=== PATIENT | male | born 1945 | race Caucasian/White ===

== ENCOUNTER 2019-01-22 12:23 | Outpatient (CLI) | payer MEDICARE, OTHER | END 2019-01-22 23:59 | disposition home or self-care (01) | LOC: RAD 12:23 | PROVIDERS: ATTEND Ophthalmology | DX: R00.1 Bradycardia, unspecified (principal) | CPT/HCPCS: 93005 ==

== ENCOUNTER 2020-09-01 05:31 | Day surgery (SDC) | payer MEDICARE, OTHER ==
[~2020-09-01] VITALS: Ht 193 cm; Wt 118.6 kg
[2020-09-01] VITALS (10 sets, daily range): BP systolic 122–160; BP diastolic 66–96
[~2020-09-01 05:31] MED LIST: AMLO5TAB16 PO; CHOL5000 PO; FLO0.4C PO; LISI10TA27 PO; NAPR-996 PO; PRED1TAB PO; cefazolin/dext.iso 2gm/100ml IV ONE; famotidine 20mg tablet PO ONE; ringers solution, lacted 1,000 ML IV SCH
[2020-09-01] MEDS ORDERED: LIDOcaine 1% 30ml preserv. free vial ONE (06:41)
[2020-09-01] MEDS ORDERED: BUPIVAcaine/PF 2.5 mg/ml (0.25%) 30ml vial ONE (06:41)
[2020-09-01] MEDS ORDERED: fentaNYL/PF 50MCG/1 ML 2ML syringe ONE (07:14)
[2020-09-01] MEDS ORDERED: LIDOcaine 2% (20mg/ml) 5ml vial ONE (07:16)
[2020-09-01] MEDS ORDERED: rocuronium 10mg/ml inj IV ONE (07:16)
[2020-09-01] MEDS ORDERED: propofol inj 20 ML IV ONE (07:16)
[2020-09-01 07:21] LABS: BASOPHILS % (AUTO) 0.5 % (0-1); EOSINOPHILS # (AUTO) 0.8 X10'3 (0-0.9); EOSINOPHILS % (AUTO) 12.1 % (0-6); LYMPHOCYTES # (AUTO) 1.2 X10'3 (1.1-4.8); MEAN CORPUSCULAR HEMOGLOBIN 30.6 PG (27.0-31.0); MEAN CORPUSCULAR HGB CONC 32.8 g/dL (33.0-36.5); MEAN CORPUSCULAR VOLUME 93.4 FL (78-98); MEAN PLATELET VOLUME 11.4 FL (7.4-10.4); MONOCYTES # (AUTO) 0.5 X10'3 (0-0.9); MONOCYTES % (AUTO) 7.3 % (2-12); NEUTROPHILS # (AUTO) 4.1 X10'3 (1.8-7.7); NEUTROPHILS % (AUTO) 62.1 % (42-75); PRE OP HEMATOCRIT 41.3 % (42.0-52.0); PRE OP HEMOGLOBIN 13.6 g/dL (14.0-17.9); PRE OP PLATELET COUNT 206 X10'3 (140-440); RED BLOOD COUNT 4.43 X10'6 (4.70-6.10)
[2020-09-01] MEDS ORDERED: ondansetron/PF 4mg/2ml inj IV PRN (07:30)
[2020-09-01] MEDS ORDERED: morphine 2 MG/ML inj. syringe IV PRN (07:30)
[2020-09-01] MEDS ORDERED: HYDROmorphone/PF 0.2 MG/ML SYRINGE IV PRN (07:30)
[2020-09-01] MEDS ORDERED: ringers solution, lacted 1,000 ML IV SCH (07:30)
[2020-09-01 07:39] LABS: ALBUMIN 3.1 G/DL (3.4-5.0); ALBUMIN/GLOBULIN RATIO 0.9 (1.1-1.5); ALKALINE PHOSPHATASE 76 IU/L (46-116); BLOOD UREA NITROGEN 39 MG/DL (7-18); BUN/CREATININE RATIO 22.4 (5.4-32.0); CALCIUM 8.3 MG/DL (8.5-10.1); CHLORIDE 111 MMOL/L (99-107); CREATININE 1.74 MG/DL (0.60-1.10); PRE OP ALT 25 U/L (30-65); PRE OP ANION GAP 11 (8-16); PRE OP AST 15 U/L (10-37); PRE OP BILIRUB, TOTAL 0.4 MG/DL (0.0-1.0); PRE OP GLUCOSE 106 MG/DL (70-104); PRE OP POTASSIUM 4.3 MMOL/L (3.4-5.1); PRE OP SODIUM 145 MMOL/L (135-145); TOTAL CARBON DIOXIDE 23.4 MMOL/L (24-32); TOTAL PROTEIN 6.5 G/DL (6.4-8.2); eGFR 38 ML/MIN
[2020-09-01] MEDS ORDERED: sevoflurane 250ml liquid IH ONE (08:07)
[2020-09-01] MEDS ORDERED: BUPIVAcaine/PF 2.5mg/ml (0.25%) 10ml vial ONE (08:22)
[2020-09-01] MEDS ORDERED: BUPIVACAINE liposomal/PF 13.3 MG/ML vial IM ONE (08:22)
--- NOTE | 2020-09-01 09:00 | NUR ---
Received from OR via , accompanied by Anesthesiologist DR MCKEON and report given by Anesthesiolgist. AWAKENS TO VOICE. VITALS STABLE. DRESSINGS DI. GREGG PAIN. ABD SOFT.
[2020-09-01] MEDS ORDERED: oxyCODONE/APAP 5-325mg tablet PO PRN ×2 (09:10)
[2020-09-01] MEDS ORDERED: glycopyrrolate 0.2mg/ml inj ONE (09:28)
[2020-09-01] MEDS ORDERED: acetaminophen 1,000mg/100ml IV 100 ML IV ONE (09:28)
[2020-09-01] MEDS ORDERED: ondansetron/PF 4mg/2ml inj ONE (09:28)
[2020-09-01] MEDS ORDERED: neostigmine methylsulfate 1 MG/ML 10ml vial ONE (09:28)
[2020-09-01] MEDS: HYDROmorphone/PF 0.2 MG/ML SYRINGE IV PRN ×2 (09:51→10:16)
--- NOTE | 2020-09-01 11:20 | NUR ---
AWAKE AND ORIENTED. VITALS STABLE. DRESSINGS DI. STATES PAIN IMPROVING. HOME WITH HIS AT THIS TIME.
== END 2020-09-01 11:20 | disposition home or self-care (01) ==
LOC: PAS 05:31
PROVIDERS: ATTEND Surgery
DX: K42.9 Umbilical hernia without obstruction or gangrene (principal); I10 Essential (primary) hypertension; M19.90 Unspecified osteoarthritis, unspecified site; G47.33 Obstructive sleep apnea (adult) (pediatric); N40.0 Benign prostatic hyperplasia without lower urinary tract symptoms; E78.5 Hyperlipidemia, unspecified; E55.9 Vitamin D deficiency, unspecified; Z98.890 Other specified postprocedural states; Z88.5 Allergy status to narcotic agent; Z79.899 Other long term (current) drug therapy; Z88.8 Allergy status to other drugs, medicaments and biological substances; Z82.49 Family history of ischemic heart disease and other diseases of the circulatory system; Z82.3 Family history of stroke; Z82.61 Family history of arthritis
CPT/HCPCS: 49652; 64488; 80053; 82948; 85025; 93005; C1781; C9290; J0131; J1170; J2001; J2405; J2704; J2710; J3010; J3490; A4215; A4618; J7120

== ENCOUNTER 2021-02-06 18:34 | Emergency (ER) | payer MEDICARE, OTHER ==
[~2021-02-06] VITALS: Ht 193 cm; Wt 118.2 kg
[~2021-02-06 18:34] MED LIST changes: -cefazolin/dext.iso 2gm/100ml IV ONE; -famotidine 20mg tablet PO ONE; -ringers solution, lacted 1,000 ML IV SCH
[2021-02-06] MEDS ORDERED: LIDOcaine 1% W/epiNEPHrine 1:200,000 10ml vial IJ ONE (19:50)
[2021-02-06] MEDS ORDERED: bacitracin 15gm ointment TP ONE (19:50)
[2021-02-06] MEDS ORDERED: LIDOcaine 1% w/epiNEPHrine 1:200,000 30ml vial IJ ONE (19:55)
[2021-02-06] MEDS ORDERED: morphine 4 MG/ML inj SYRINge IV ONE (19:55)
[2021-02-06] MEDS ORDERED: ACET-1025 PO (21:12)
[2021-02-06] MEDS ORDERED: ketorolac trometh. 30mg/ml inj. IV ONE (21:50)
[2021-02-06] MEDS ORDERED: orphenadrine citrate 60mg/2ml inj. IM ONE (21:50)
[2021-02-06 22:19] VITALS: BP 174/87
== END 2021-02-06 22:23 | disposition home or self-care (01) ==
LOC: ER 18:35
DX: S62.316A Displaced fracture of base of fifth metacarpal bone, right hand, initial encounter for closed fracture (principal); S01.81XA Laceration without foreign body of other part of head, initial encounter; S01.21XA Laceration without foreign body of nose, initial encounter; S01.111A Laceration without foreign body of right eyelid and periocular area, initial encounter; M54.2 Cervicalgia; W18.09XA Striking against other object with subsequent fall, initial encounter; Z91.81 History of falling; Y93.89 Activity, other specified; Y92.89 Other specified places as the place of occurrence of the external cause; Y99.8 Other external cause status; Z88.8 Allergy status to other drugs, medicaments and biological substances; Z79.899 Other long term (current) drug therapy; S09.90XA Unspecified injury of head, initial encounter
CPT/HCPCS: 12013; 29125; 70450; 72125; 73110; 73130; 96372; 96374; 96375; 99285; J1885; J2270; J2360; 99284

== ENCOUNTER 2021-02-13 09:01 | Emergency (ER) | payer MEDICARE, OTHER ==
[~2021-02-13] VITALS: Ht 193 cm; Wt 118.2 kg
[~2021-02-13 09:01] MED LIST changes: +ACET-1025 PO
[2021-02-13 09:08] VITALS: BP 179/98
== END 2021-02-13 13:15 | disposition home or self-care (01) ==
LOC: ER 09:03
DX: S01.111D Laceration without foreign body of right eyelid and periocular area, subsequent encounter (principal); S01.21XD Laceration without foreign body of nose, subsequent encounter; Z48.02 Encounter for removal of sutures; Z79.899 Other long term (current) drug therapy; Z88.8 Allergy status to other drugs, medicaments and biological substances; X58.XXXD Exposure to other specified factors, subsequent encounter
CPT/HCPCS: 99281

== ENCOUNTER 2022-04-27 11:20 | Inpatient (IN) | payer MEDICARE, OTHER ==
[~2022-04-27] VITALS: Ht 193 cm; Wt 118.0 kg
[~2022-04-27 11:20] MED LIST changes: -ACET-1025 PO
[2022-04-27 11:45] LABS: HEMOGLOBIN 10.3 g/dl (14.0-17.9); LYMPHOCYTES # (AUTO) 0.6 X10'3 (1.1-4.8); MEAN CORPUSCULAR HGB CONC 30.6 g/dL (33.0-36.5); MEAN CORPUSCULAR VOLUME 84.4 FL (78-98); MONOCYTES # (AUTO) 0.5 X10'3 (0-0.9); NEUTROPHILS # (AUTO) 6.3 X10'3 (1.8-7.7); RED BLOOD COUNT 3.99 X10'6 (4.70-6.10)
[2022-04-27 11:46] LABS: BASOPHILS % (AUTO) 0.5 % (0-1); EOSINOPHILS # (AUTO) 0.1 X10'3 (0-0.9); EOSINOPHILS % (AUTO) 1.5 % (0-6); HEMATOCRIT 33.7 % (42.0-52.0); LYMPHOCYTES % (AUTO) 7.7 % (21-51); MEAN CORPUSCULAR HEMOGLOBIN 25.9 PG (27.0-31.0); MEAN PLATELET VOLUME 10.8 FL (7.4-10.4); MONOCYTES % (AUTO) 6.9 % (2-12); NEUTROPHILS % (AUTO) 83.4 % (42-75); PLATELET COUNT 402 X10'3 (140-440); RED CELL DISTRIBUTION WIDTH 21.1 % (11.5-14.5); WHITE BLOOD COUNT 7.5 X10'3 (4.5-11.0)
[2022-04-27 11:57] LABS: ALANINE AMINOTRANSFERASE 14 U/L (12-78); ALBUMIN 2.2 G/DL (3.4-5.0); ALBUMIN/GLOBULIN RATIO 0.5 (1.1-1.5); ALKALINE PHOSPHATASE 82 IU/L (46-116); ASPARTATE AMINO TRANSFERASE 11 U/L (10-37); BILIRUBIN,TOTAL 0.4 MG/DL (0.1-1.0); BLOOD UREA NITROGEN 71 MG/DL (7-18); BUN/CREATININE RATIO 17.5 (5.4-32.0); CALCIUM 8.9 MG/DL (8.5-10.1); CREATININE 4.05 MG/DL (0.60-1.10); GLUCOSE 122 MG/DL (70-104); SODIUM 143 MMOL/L (135-145); TOTAL CARBON DIOXIDE 20.5 MMOL/L (24-32); TOTAL PROTEIN 6.8 G/DL (6.4-8.2); eGFR 14 ML/MIN
[2022-04-27 12:04] LABS: MAGNESIUM 2.5 MG/DL (1.5-2.4)
[2022-04-27 12:08] LABS: ANISOCYTOSIS 3+; MICROCYTOSIS 1+; PLATELET ESTIMATE NORMAL
[2022-04-27 12:09] LABS: ACANTHOCYTES FEW; ELLIPTOCYTES 1+
[2022-04-27 12:10] LABS: ANION GAP 12 (8-16); CHLORIDE 111 MMOL/L (99-107); POTASSIUM 5.7 MMOL/L (3.5-5.1)
--- NOTE | 2022-04-27 13:39 | NUR ---
AT BEDSIDE - PT GIVEN WARM BLANKETS. ON MONITORING EQUIPMENT. REPORTS DIZZINESS. NO OTHER SYMPTOMS
--- NOTE | 2022-04-27 14:01 | NUR ---
Break RN: Patient on bed awake, spouse at bedside.Call light within reach.
[2022-04-27] MEDS ORDERED: diazepam 5mg tablet PO ONE (14:25)
[2022-04-27] MEDS ORDERED: meclizine 12.5mg tablet PO ONE (14:25)
[2022-04-27] MEDS ORDERED: normal saline 1000ML IV soln IVB ONE (16:00)
--- NOTE | 2022-04-27 16:42 | NUR ---
FAMILY CALLED AND WAS PROVIDED WITH UPDATE ON PLAN OF CARE
[2022-04-27] MEDS ORDERED: docusate sod 100mg capsule PO PRN (17:25)
[2022-04-27] MEDS ORDERED: PERFLUTREN PROTEIN-A MICROSPHR (Optison) 0.22 MG/ML 3ML VIAL IV ONE (17:25)
[2022-04-27] MEDS ORDERED: potassium Cl 20 mEq SR tablet PO PRN ×2 (17:25)
[2022-04-27] MEDS ORDERED: ondansetron/PF 4mg/2ml inj IV PRN (17:25)
[2022-04-27] MEDS ORDERED: diazepam inj 5 MG/ML inj. IV PRN (17:25)
[2022-04-27] MEDS ORDERED: acetaminophen 325mg tablet PO PRN ×2 (17:25)
[2022-04-27] MEDS ORDERED: potassium Cl 40MEQ/1/2NS 520ml 520 ML IV PRN (17:25)
[2022-04-27] MEDS ORDERED: mag hydrox/Alum hydrox/simeth 30ml oral suspension PO PRN (17:25)
[2022-04-27] MEDS ORDERED: meclizine 12.5mg tablet PO PRN (17:25)
[2022-04-27] MEDS ORDERED: magnesium 4gm in 100ml NS 100 ML IV PRN (17:25)
--- NOTE | 2022-04-27 17:30 | NUR ---
HOSPITALIST AT BEDSIDE FOR ADMISSION
[2022-04-27] MEDS ORDERED: CHOL20002 PO (17:31)
[2022-04-27] MEDS ORDERED: FERR-106 PO (17:31)
[2022-04-27] MEDS ORDERED: ASCO500C18 PO (17:31)
[2022-04-27] MEDS ORDERED: MULT-1219 PO (17:31)
--- NOTE | 2022-04-27 18:05 | NUR ---
ECHO AT BEDSIDE
[2022-04-27] MEDS: K and/or MAG REPLACEMENT MC SCH (20:00)
[2022-04-27] MEDS: enoxaparin 30mg/0.3ml syringe SQ SCH (20:00)
[2022-04-27 23:30] VITALS: BP 166/85
[2022-04-28 02:00] VITALS: BP 144/64
[2022-04-28 06:06] LABS: BASOPHILS % (AUTO) 0.6 % (0-1); EOSINOPHILS # (AUTO) 0.2 X10'3 (0-0.9); HEMOGLOBIN 9.3 g/dl (14.0-17.9); LYMPHOCYTES # (AUTO) 0.7 X10'3 (1.1-4.8); MONOCYTES # (AUTO) 0.6 X10'3 (0-0.9); WHITE BLOOD COUNT 6.2 X10'3 (4.5-11.0)
[2022-04-28 06:08] LABS: EOSINOPHILS % (AUTO) 3.6 % (0-6); LYMPHOCYTES % (AUTO) 10.8 % (21-51); MEAN CORPUSCULAR HEMOGLOBIN 26.2 PG (27.0-31.0); MEAN CORPUSCULAR VOLUME 84.5 FL (78-98); MEAN PLATELET VOLUME 9.6 FL (7.4-10.4); MONOCYTES % (AUTO) 10.5 % (2-12); NEUTROPHILS # (AUTO) 4.6 X10'3 (1.8-7.7); NEUTROPHILS % (AUTO) 74.5 % (42-75); PLATELET COUNT 308 X10'3 (140-440); RED BLOOD COUNT 3.55 X10'6 (4.70-6.10); RED CELL DISTRIBUTION WIDTH 20.8 % (11.5-14.5)
[2022-04-28 06:25] LABS: % IRON SATURATION 16 % (11-46); IRON 18 UG/DL (53-167); TOTAL IRON BINDING CAPACITY 111 UG/DL (259-388)
[2022-04-28 06:26] LABS: ALANINE AMINOTRANSFERASE 14 U/L (12-78); ALBUMIN 1.9 G/DL (3.4-5.0); ALBUMIN/GLOBULIN RATIO 0.5 (1.1-1.5); ALKALINE PHOSPHATASE 67 IU/L (46-116); ANION GAP 10 (8-16); ASPARTATE AMINO TRANSFERASE 15 U/L (10-37); BILIRUBIN,TOTAL 0.4 MG/DL (0.1-1.0); BLOOD UREA NITROGEN 69 MG/DL (7-18); BUN/CREATININE RATIO 17.8 (5.4-32.0); CALCIUM 8.2 MG/DL (8.5-10.1); CHLORIDE 114 MMOL/L (99-107); CREATININE 3.88 MG/DL (0.60-1.10); GLUCOSE 95 MG/DL (70-104); MAGNESIUM 2.4 MG/DL (1.5-2.4); POTASSIUM 5.9 MMOL/L (3.5-5.1); SODIUM 144 MMOL/L (135-145); TOTAL CARBON DIOXIDE 19.9 MMOL/L (24-32); TOTAL PROTEIN 5.7 G/DL (6.4-8.2); eGFR 15 ML/MIN
[2022-04-28 06:34] LABS: PLATELET ESTIMATE NORMAL
[2022-04-28 06:35] LABS: ANISOCYTOSIS 3+; ELLIPTOCYTES 1+; GIANT PLATELET FEW; LARGE PLATELETS MODERATE
--- NOTE | 2022-04-28 06:45 | NUR ---
Report given to Kerrie MIKE
--- NOTE | 2022-04-28 06:55 | NUR ---
Patient in room PCU 3028. I have received report from Bettina and had the opportunity to ask questions and assume patient care.
[2022-04-28 07:15] VITALS: BP 141/61
[2022-04-28] MEDS: K and/or MAG REPLACEMENT MC SCH ×2 (08:00→20:00)
[2022-04-28] MEDS ORDERED: calcium chloride 100 MG/1 ML inj IV ONE (08:05)
[2022-04-28] MEDS ORDERED: WATER IV SCH (08:05)
[2022-04-28] MEDS ORDERED: albuterol 2.5 MG/3 ML nebule CONTNEB ONE (08:05)
[2022-04-28] MEDS ORDERED: insulin regular, human 10 units/0.1 ml syringe SQ ONE (08:05)
[2022-04-28] MEDS ORDERED: DEXTROSE 5% IV SCH (08:05)
[2022-04-28] MEDS ORDERED: SODIUM BICARBONATE IV SCH (08:05)
[2022-04-28] MEDS ORDERED: sodium bicarbonate (8.4%) 1 mEq/ml syringe IV ONE (08:05)
[2022-04-28] MEDS ORDERED: dextrose 50%-water 50ml dispensing syringe IV ONE (08:05)
[2022-04-28 08:38] LABS: PHOSPHORUS 5.6 MG/DL (2.3-4.5)
[2022-04-28] MEDS ORDERED: CALCIUM GLUC IV ONE (09:45)
[2022-04-28] MEDS ORDERED: ISO OSM IV ONE (09:45)
[2022-04-28] MEDS ORDERED: NACL IV ONE (09:45)
[2022-04-28] MEDS ORDERED: calcium chloride inj. 1,000 MG in NS 100ml IV soln (110ml) IV ONE (09:55)
[2022-04-28 11:00] VITALS: BP 135/58
[2022-04-28] MEDS: sodium bicarbonate (8.4%) inj. 50 MEQ in dextrose 5%-water 1,000 ML IV SCH (11:28)
--- NOTE | 2022-04-28 12:01 | NUR ---
Malnutrition consult: Pt reports 24-33 lb wt loss with decreased appetite per malnutrition risk screen with RN. Pending documentation of PO intake at this time. Current documented wt is 100% stable with documented wt hx back to 09/01/2020 (118.6 kg) and 129% IBW. Pt with no documented decrease in muscle strength or edema. Pt currently lacks a minimum of two criteria for malnutrition. Will continue to follow and further monitor malnutrition criteria. Addendum: 04/28/22 at [address] Amended: Links added.
[2022-04-28 12:54] LABS: ALBUMIN 1.8 G/DL (3.4-5.0); ANION GAP 8 (8-16); BLOOD UREA NITROGEN 68 MG/DL (7-18); BUN/CREATININE RATIO 17.7 (5.4-32.0); CALCIUM 8.9 MG/DL (8.5-10.1); CHLORIDE 114 MMOL/L (99-107); CREATININE 3.84 MG/DL (0.60-1.10); GLUCOSE 124 MG/DL (70-104); POTASSIUM 5.7 MMOL/L (3.5-5.1); SODIUM 142 MMOL/L (135-145); eGFR 15 ML/MIN
[2022-04-28] MEDS ORDERED: SODIUM ZIRCONIUM CYCLOSILICATE 10 GM POWD.PACK PO ONE (13:20)
[2022-04-28] MEDS ORDERED: sodium polystyrene sulfonate 15gm/60ml oral suspension PO ONE (16:25)
[2022-04-28] MEDS: iron sucrose complex injection 200 MG in normal saline 100ml IV soln 100 ML IV SCH (17:07)
--- NOTE | 2022-04-28 18:24 | NUR ---
Problems reprioritized. Patient report given, questions answered & plan of care reviewed with
[2022-04-28] MEDS: enoxaparin 30mg/0.3ml syringe SQ SCH (21:04)
[2022-04-28 22:00] VITALS: BP 140/64
[2022-04-29] MEDS: furosemide 40mg/4ml inj IV SCH ×4 (00:40→23:32)
[2022-04-29] MEDS: sodium bicarbonate (8.4%) inj. 50 MEQ in dextrose 5%-water 1,000 ML IV SCH ×3 (01:03→16:06)
[2022-04-29 02:00] VITALS: BP 145/70
[2022-04-29 06:30] LABS: BASOPHILS % (AUTO) 0.6 % (0-1); EOSINOPHILS # (AUTO) 0.1 X10'3 (0-0.9); EOSINOPHILS % (AUTO) 2.6 % (0-6); HEMATOCRIT 27.4 % (42.0-52.0); HEMOGLOBIN 8.4 g/dl (14.0-17.9); LYMPHOCYTES # (AUTO) 0.6 X10'3 (1.1-4.8); LYMPHOCYTES % (AUTO) 11.6 % (21-51); MEAN CORPUSCULAR HEMOGLOBIN 25.5 PG (27.0-31.0); MEAN CORPUSCULAR HGB CONC 30.5 g/dL (33.0-36.5); MEAN CORPUSCULAR VOLUME 83.7 FL (78-98); MEAN PLATELET VOLUME 10.5 FL (7.4-10.4); MONOCYTES # (AUTO) 0.6 X10'3 (0-0.9); MONOCYTES % (AUTO) 10.8 % (2-12); NEUTROPHILS # (AUTO) 4.1 X10'3 (1.8-7.7); NEUTROPHILS % (AUTO) 74.4 % (42-75); PLATELET COUNT 277 X10'3 (140-440); RED BLOOD COUNT 3.28 X10'6 (4.70-6.10); RED CELL DISTRIBUTION WIDTH 21.1 % (11.5-14.5); WHITE BLOOD COUNT 5.6 X10'3 (4.5-11.0)
--- NOTE | 2022-04-29 06:35 | NUR ---
Patient in room PCU 3028. I have received report from GABRIELA MIKE and had the opportunity to ask questions and assume patient care.
[2022-04-29 06:52] LABS: ALANINE AMINOTRANSFERASE 14 U/L (12-78); ALBUMIN 1.7 G/DL (3.4-5.0); ALBUMIN/GLOBULIN RATIO 0.5 (1.1-1.5); ALKALINE PHOSPHATASE 61 IU/L (46-116); ANION GAP 8 (8-16); ASPARTATE AMINO TRANSFERASE 15 U/L (10-37); BILIRUBIN,TOTAL 0.3 MG/DL (0.1-1.0); BLOOD UREA NITROGEN 65 MG/DL (7-18); BUN/CREATININE RATIO 17.5 (5.4-32.0); CALCIUM 8.2 MG/DL (8.5-10.1); CHLORIDE 110 MMOL/L (99-107); CREATININE 3.71 MG/DL (0.60-1.10); GLUCOSE 105 MG/DL (70-104); MAGNESIUM 2.3 MG/DL (1.5-2.4); PHOSPHORUS 5.5 MG/DL (2.3-4.5); POTASSIUM 4.7 MMOL/L (3.5-5.1); SODIUM 140 MMOL/L (135-145); TOTAL CARBON DIOXIDE 21.8 MMOL/L (24-32); TOTAL PROTEIN 5.3 G/DL (6.4-8.2); eGFR 16 ML/MIN
[2022-04-29 07:21] VITALS: BP 135/63
--- NOTE | 2022-04-29 07:47 | NUR ---
reported critical lab value to primary RN
[2022-04-29] MEDS: K and/or MAG REPLACEMENT MC SCH ×2 (08:00→20:00)
[2022-04-29] MEDS: iron sucrose complex injection 200 MG in normal saline 100ml IV soln 100 ML IV SCH (09:12)
[2022-04-29] MEDS ORDERED: aspirin 81mg, enteric-coated 1 TAB TABLET.DR PO ONE (09:30)
[2022-04-29 10:12] LABS: CLARITY,URINE SLIGHTLY CLOUDY (Clear); COLOR,URINE YELLOW (Yellow); GLUCOSE, URINE NEGATIVE (Neg); KETONES,URINE NEGATIVE (Neg); LEUKOCYTE ESTERASE ,URINE NEGATIVE (Neg); NITRITES, URINE NEGATIVE (Neg); OCCULT BLOOD,URINE LARGE (Neg); PROTEIN,URINE 30 mg/dl (Neg); UROBILINOGEN,URINE 0.2 E.U/dL (0.2-1.0)
[2022-04-29 10:16] LABS: UA COLLECTION TYPE URINAL
[2022-04-29 10:18] LABS: BACTERIA,URINE FEW /HPF (Neg); WBC,URINE 0-4 /HPF (0-4)
[2022-04-29 10:19] LABS: FINE GRANULAR CAST 0-3 /LPF (NEGATIVE); MUCUS STRANDS NONE SEEN /LPF (Neg); SQUAMOUS EPITHELIAL CELL,UR FEW /LPF (FEW)
[2022-04-29 10:20] LABS: COARSE GRANULAR CAST 0-3 /LPF (NEGATIVE); RED BLOOD CELL CASTS,URINE 0-3 /LPF (NEGATIVE)
[2022-04-29 10:26] LABS: TOTAL PROTEIN,URINE RANDOM 68.5 MG/DL
[2022-04-29 11:28] VITALS: BP 150/70
[2022-04-29 15:45] VITALS: BP 160/67
[2022-04-29 18:00] VITALS: BP 156/69
--- NOTE | 2022-04-29 18:18 | NUR ---
Problems reprioritized. Patient report given, questions answered & plan of care reviewed with GOSIA BURLESON.
[2022-04-29] MEDS: enoxaparin 30mg/0.3ml syringe SQ SCH (19:33)
[2022-04-30 01:53] VITALS: BP 158/67
[2022-04-30] MEDS: sodium bicarbonate (8.4%) inj. 50 MEQ in dextrose 5%-water 1,000 ML IV SCH (02:29)
[2022-04-30 06:00] VITALS: BP 159/72
[2022-04-30 06:09] LABS: ALANINE AMINOTRANSFERASE 14 U/L (12-78); ALBUMIN 1.8 G/DL (3.4-5.0); ALBUMIN/GLOBULIN RATIO 0.5 (1.1-1.5); ALKALINE PHOSPHATASE 64 IU/L (46-116); ANION GAP 8 (8-16); ASPARTATE AMINO TRANSFERASE 21 U/L (10-37); BILIRUBIN,TOTAL 0.4 MG/DL (0.1-1.0); BLOOD UREA NITROGEN 61 MG/DL (7-18); BUN/CREATININE RATIO 16.4 (5.4-32.0); CALCIUM 8.2 MG/DL (8.5-10.1); CHLORIDE 106 MMOL/L (99-107); CREATININE 3.73 MG/DL (0.60-1.10); GLUCOSE 99 MG/DL (70-104); MAGNESIUM 2.1 MG/DL (1.5-2.4); PHOSPHORUS 5.5 MG/DL (2.3-4.5); POTASSIUM 4.5 MMOL/L (3.5-5.1); SODIUM 138 MMOL/L (135-145); TOTAL CARBON DIOXIDE 24.5 MMOL/L (24-32); TOTAL PROTEIN 5.6 G/DL (6.4-8.2); eGFR 16 ML/MIN
[2022-04-30 06:14] LABS: BASOPHILS % (AUTO) 0.5 % (0-1); EOSINOPHILS # (AUTO) 0.3 X10'3 (0-0.9); EOSINOPHILS % (AUTO) 5.3 % (0-6); HEMOGLOBIN 8.6 g/dl (14.0-17.9); LYMPHOCYTES # (AUTO) 0.7 X10'3 (1.1-4.8); LYMPHOCYTES % (AUTO) 12.1 % (21-51); MEAN CORPUSCULAR HEMOGLOBIN 25.7 PG (27.0-31.0); MEAN CORPUSCULAR HGB CONC 30.9 g/dL (33.0-36.5); MEAN CORPUSCULAR VOLUME 83.3 FL (78-98); MEAN PLATELET VOLUME 10.6 FL (7.4-10.4); MONOCYTES # (AUTO) 0.6 X10'3 (0-0.9); MONOCYTES % (AUTO) 10.1 % (2-12); NEUTROPHILS # (AUTO) 4.2 X10'3 (1.8-7.7); PLATELET COUNT 281 X10'3 (140-440); RED BLOOD COUNT 3.36 X10'6 (4.70-6.10); RED CELL DISTRIBUTION WIDTH 20.4 % (11.5-14.5); WHITE BLOOD COUNT 5.9 X10'3 (4.5-11.0)
--- NOTE | 2022-04-30 06:25 | NUR ---
Patient in room PCU 3028. I have received report from Mario BURLESON and had the opportunity to ask questions and assume patient care.
[2022-04-30 07:14] LABS: ANISOCYTOSIS 3+; LARGE PLATELETS MODERATE; PLATELET ESTIMATE NORMAL
[2022-04-30] MEDS: furosemide 40mg/4ml inj IV SCH (07:58)
[2022-04-30] MEDS: K and/or MAG REPLACEMENT MC SCH ×2 (08:00→20:00)
[2022-04-30] MEDS: iron sucrose complex injection 200 MG in normal saline 100ml IV soln 100 ML IV SCH (08:06)
[2022-04-30] MEDS: aspirin 81mg, enteric-coated 1 TAB TABLET.DR PO SCH (09:05)
[2022-04-30] MEDS: lisinopril 20mg tablet PO SCH (09:06)
[2022-04-30] MEDS: cholecalciferol (vitamin D3) 1,000 unit (25mcg) tablet PO SCH (09:06)
[2022-04-30] MEDS: multivitamins, therapeutics tablet PO SCH (09:06)
[2022-04-30] MEDS: ascorbic acid 500mg tablet PO SCH (09:07)
--- NOTE | 2022-04-30 10:27 | NUR ---
Paged MD about patient heart rhythm being in the 30's, then patient heart rhythm back to normal range.
--- NOTE | 2022-04-30 11:42 | NUR ---
verbally spoke with patient Sara over the phone and gave her an update on patient care. Then transferred her to patient
[2022-04-30 13:00] VITALS: BP 173/84
--- NOTE | 2022-04-30 14:33 | NUR ---
RN TC: Animal Care Taker requests RD renal diet ed for pt/SO. Pt eGFR 16 w/ persistently elevated Phos this admit DX MYKEL w/ CKD 4 now advanced to renal diet per EMR. Pt/SO seen by RD for written/verbal renal diet ed w/ RD contact information provided. RD encouraged pt/SO to contact dietitian's office if further nutrition questions/concerns. Addendum: 04/30/22 at [address] Amended: Links added.
--- NOTE | 2022-04-30 17:16 | NUR ---
I agree with Marlena BURLESON assessment.
[2022-04-30 18:00] VITALS: BP 148/72
--- NOTE | 2022-04-30 18:16 | NUR ---
Problems reprioritized. Patient report given, questions answered & plan of care reviewed with Mario BURLESON.
[2022-04-30] MEDS: enoxaparin 30mg/0.3ml syringe SQ SCH (19:32)
[2022-05-01 01:54] VITALS: BP 166/72
[2022-05-01 06:17] LABS: BASOPHILS % (AUTO) 0.7 % (0-1); EOSINOPHILS # (AUTO) 0.3 X10'3 (0-0.9); LYMPHOCYTES # (AUTO) 0.8 X10'3 (1.1-4.8)
[2022-05-01 06:19] LABS: ALANINE AMINOTRANSFERASE 13 U/L (12-78); ALBUMIN 1.7 G/DL (3.4-5.0); ALBUMIN/GLOBULIN RATIO 0.4 (1.1-1.5); ALKALINE PHOSPHATASE 65 IU/L (46-116); ANION GAP 8 (8-16); ASPARTATE AMINO TRANSFERASE 21 U/L (10-37); BILIRUBIN,TOTAL 0.4 MG/DL (0.1-1.0); BLOOD UREA NITROGEN 59 MG/DL (7-18); BUN/CREATININE RATIO 15.7 (5.4-32.0); CALCIUM 8.1 MG/DL (8.5-10.1); CHLORIDE 106 MMOL/L (99-107); CREATININE 3.76 MG/DL (0.60-1.10); EOSINOPHILS % (AUTO) 5.2 % (0-6); GLUCOSE 90 MG/DL (70-104); HEMATOCRIT 29.1 % (42.0-52.0); HEMOGLOBIN 9.2 g/dl (14.0-17.9); LYMPHOCYTES % (AUTO) 12.3 % (21-51); MEAN CORPUSCULAR HEMOGLOBIN 25.9 PG (27.0-31.0); MEAN CORPUSCULAR HGB CONC 31.5 g/dL (33.0-36.5); MEAN CORPUSCULAR VOLUME 82.3 FL (78-98); MEAN PLATELET VOLUME 9.9 FL (7.4-10.4); MONOCYTES # (AUTO) 0.6 X10'3 (0-0.9); MONOCYTES % (AUTO) 9.6 % (2-12); NEUTROPHILS # (AUTO) 4.7 X10'3 (1.8-7.7); NEUTROPHILS % (AUTO) 72.2 % (42-75); PHOSPHORUS 5.5 MG/DL (2.3-4.5); PLATELET COUNT 262 X10'3 (140-440); POTASSIUM 4.3 MMOL/L (3.5-5.1); RED BLOOD COUNT 3.54 X10'6 (4.70-6.10); RED CELL DISTRIBUTION WIDTH 20.5 % (11.5-14.5); SODIUM 138 MMOL/L (135-145); TOTAL CARBON DIOXIDE 24.1 MMOL/L (24-32); TOTAL PROTEIN 5.5 G/DL (6.4-8.2); WHITE BLOOD COUNT 6.5 X10'3 (4.5-11.0); eGFR 16 ML/MIN
--- NOTE | 2022-05-01 06:29 | NUR ---
Patient in room PCU 3028. I have received report from Mario BURLESON and had the opportunity to ask questions and assume patient care.
[2022-05-01 06:57] LABS: LARGE PLATELETS MODERATE; PLATELET ESTIMATE NORMAL
[2022-05-01 06:58] LABS: ANISOCYTOSIS 3+; ELLIPTOCYTES FEW
[2022-05-01 07:00] VITALS: BP 156/83
[2022-05-01] MEDS: K and/or MAG REPLACEMENT MC SCH ×2 (08:00→20:00)
[2022-05-01] MEDS: ascorbic acid 500mg tablet PO SCH (08:30)
[2022-05-01] MEDS: multivitamins, therapeutics tablet PO SCH (08:30)
[2022-05-01] MEDS: furosemide 40mg tablet PO SCH (08:30)
[2022-05-01] MEDS: cholecalciferol (vitamin D3) 1,000 unit (25mcg) tablet PO SCH (08:30)
[2022-05-01] MEDS: lisinopril 20mg tablet PO SCH (08:31)
[2022-05-01] MEDS: aspirin 81mg, enteric-coated 1 TAB TABLET.DR PO SCH (08:31)
[2022-05-01] MEDS: iron sucrose complex injection 200 MG in normal saline 100ml IV soln 100 ML IV SCH (08:45)
--- NOTE | 2022-05-01 09:05 | NUR ---
PAGER ID: [phone] MESSAGE: [id number] Climateminder notified me the patient went back into A-fib rate is 91 asymptomatic. Thank you Rima BURLESON [phone]
[2022-05-01 09:16] LABS: PSA, FREE 0.18 ng/mL
[2022-05-01 11:00] VITALS: BP 138/62
--- NOTE | 2022-05-01 12:13 | NUR ---
I agree with Tana, CLOTHING MANAGER assessment.
[2022-05-01 15:53] LABS: A/G RATIO 0.7 (0.7-1.7); ALBUMIN 2.1 g/dL (2.9-4.4); BETA GLOBULIN 0.8 g/dL (0.7-1.3); GAMMA GLOBULIN 0.9 g/dL (0.4-1.8); M-SPIKE Not Observed g/dL (Not Observed); PROTEIN, TOTAL, SERUM 5.1 g/dL (6.0-8.5)
[2022-05-01 16:07] VITALS: BP 147/101
[2022-05-01 16:15] VITALS: BP 136/66
--- NOTE | 2022-05-01 18:23 | NUR ---
Problems reprioritized. Patient report given, questions answered & plan of care reviewed with Mario BURLESON.
[2022-05-01] MEDS: enoxaparin 30mg/0.3ml syringe SQ SCH (19:11)
[2022-05-01 19:13] VITALS: BP 178/87
[2022-05-02 06:05] LABS: ALANINE AMINOTRANSFERASE 11 U/L (12-78); ALBUMIN 1.8 G/DL (3.4-5.0); ALBUMIN/GLOBULIN RATIO 0.4 (1.1-1.5); ALKALINE PHOSPHATASE 70 IU/L (46-116); ANION GAP 9 (8-16); ASPARTATE AMINO TRANSFERASE 15 U/L (10-37); BILIRUBIN,TOTAL 0.5 MG/DL (0.1-1.0); BLOOD UREA NITROGEN 61 MG/DL (7-18); BUN/CREATININE RATIO 15.8 (5.4-32.0); CALCIUM 8.5 MG/DL (8.5-10.1); CHLORIDE 106 MMOL/L (99-107); CREATININE 3.85 MG/DL (0.60-1.10); EOSINOPHILS # (AUTO) 0.2 X10'3 (0-0.9); GLUCOSE 92 MG/DL (70-104); HEMATOCRIT 30.3 % (42.0-52.0); LYMPHOCYTES # (AUTO) 0.7 X10'3 (1.1-4.8); LYMPHOCYTES % (AUTO) 11.1 % (21-51); MAGNESIUM 2.1 MG/DL (1.5-2.4); MEAN CORPUSCULAR HEMOGLOBIN 25.5 PG (27.0-31.0); MEAN CORPUSCULAR HGB CONC 30.8 g/dL (33.0-36.5); MONOCYTES # (AUTO) 0.7 X10'3 (0-0.9); NEUTROPHILS # (AUTO) 4.8 X10'3 (1.8-7.7); PHOSPHORUS 5.6 MG/DL (2.3-4.5); POTASSIUM 4.2 MMOL/L (3.5-5.1); RED CELL DISTRIBUTION WIDTH 20.9 % (11.5-14.5); SODIUM 141 MMOL/L (135-145); TOTAL CARBON DIOXIDE 26.1 MMOL/L (24-32); TOTAL PROTEIN 5.9 G/DL (6.4-8.2); eGFR 15 ML/MIN
[2022-05-02 06:06] LABS: BASOPHILS % (AUTO) 0.4 % (0-1); EOSINOPHILS % (AUTO) 3.4 % (0-6); HEMOGLOBIN 9.3 g/dl (14.0-17.9); MEAN PLATELET VOLUME 9.9 FL (7.4-10.4); MONOCYTES % (AUTO) 10.4 % (2-12); NEUTROPHILS % (AUTO) 74.7 % (42-75); PLATELET COUNT 274 X10'3 (140-440); RED BLOOD COUNT 3.65 X10'6 (4.70-6.10); WHITE BLOOD COUNT 6.5 X10'3 (4.5-11.0)
--- NOTE | 2022-05-02 06:30 | NUR ---
Patient in room PCU 3028. I have received report from Mario BURLESON and had the opportunity to ask questions and assume patient care.
[2022-05-02 07:00] VITALS: BP 138/72
[2022-05-02] MEDS: K and/or MAG REPLACEMENT MC SCH (08:00)
[2022-05-02] MEDS ORDERED: ferrous sulfate 325mg tablet PO SCH (08:00)
[2022-05-02] MEDS ORDERED: FURO40TA4 PO (08:02)
[2022-05-02] MEDS: cholecalciferol (vitamin D3) 1,000 unit (25mcg) tablet PO SCH (08:09)
[2022-05-02] MEDS: furosemide 40mg tablet PO SCH (08:09)
[2022-05-02 08:10] VITALS: BP_SYST 138
[2022-05-02] MEDS: lisinopril 20mg tablet PO SCH (08:10)
[2022-05-02] MEDS: aspirin 81mg, enteric-coated 1 TAB TABLET.DR PO SCH (08:10)
[2022-05-02] MEDS: multivitamins, therapeutics tablet PO SCH (08:10)
[2022-05-02] MEDS: ascorbic acid 500mg tablet PO SCH (08:11)
--- NOTE | 2022-05-02 09:15 | NUR ---
Nutrition consult: Addressed; see prior RD note. Addendum: 05/02/22 at [address] Amended: Links added.
[2022-05-02 09:52] LABS: ANISOCYTOSIS 3+; ELLIPTOCYTES 1+; PLATELET ESTIMATE NORMAL
[2022-05-02 09:53] LABS: SCHISTOCYTES FEW
[2022-05-02 09:54] LABS: BURR CELLS FEW
[2022-05-02 09:55] LABS: GIANT PLATELET FEW; LARGE PLATELETS MODERATE
--- NOTE | 2022-05-02 13:48 | NUR ---
Patient discharged home. All belongings and discharge instructions sent home. IV removed and telephone worker removed and returned to telephone worker. Escorted out by nursing and left via private vehicle.
[2022-05-02 15:58] LABS: ALBUMIN, UR 66.4 % (.); ALPHA-1-GLOBULIN,UR 1.4 % (.); ALPHA-2-GLOBULIN,UR 12.1 % (.); PROTEIN,TOTAL,URINE 55.3 mg/dL (Not Estab.)
== END 2022-05-02 12:30 | disposition home health service (06) | DRG 682 ==
LOC: ER 11:22 → ED HOLD 17:29 → PCU 3S 23:10
PROVIDERS: ADMIT Family Medicine; ATTEND Family Medicine
DX: N17.0 Acute kidney failure with tubular necrosis (principal); E43 Unspecified severe protein-calorie malnutrition; I50.33 Acute on chronic diastolic (congestive) heart failure; I82.612 Acute embolism and thrombosis of superficial veins of left upper extremity; E87.20 Acidosis, unspecified; N18.4 Chronic kidney disease, stage 4 (severe); R55 Syncope and collapse; E61.1 Iron deficiency; E87.5 Hyperkalemia; D63.8 Anemia in other chronic diseases classified elsewhere; E88.09 Other disorders of plasma-protein metabolism, not elsewhere classified; R80.9 Proteinuria, unspecified; R25.1 Tremor, unspecified; I25.10 Atherosclerotic heart disease of native coronary artery without angina pectoris; Z79.899 Other long term (current) drug therapy; Z82.49 Family history of ischemic heart disease and other diseases of the circulatory system; Z95.1 Presence of aortocoronary bypass graft; Z98.42 Cataract extraction status, left eye; Z98.41 Cataract extraction status, right eye; Z88.5 Allergy status to narcotic agent; Z68.31 Body mass index [BMI] 31.0-31.9, adult
CPT/HCPCS: 36415; 70480; 71045; 76770; 80048; 80053; 81001; 82570; 82948; 83540; 83550; 83735; 83880; 84100; 84153; 84154; 84155; 84156; 84165; 84166; 84300; 84484; 85008; 85025; 87081; 93005; 93306; 93970; 93971; 94640; 94760; 96360; 97116; 97161; 97530; 99285; A6212; A6250; A7015; G0378; J1650; J1756; J1815; J1940; J3490; J7030; J7040; J7070; J8597

== ENCOUNTER 2022-05-25 10:57 | Inpatient (IN) | payer MEDICARE, OTHER ==
[~2022-05-25] VITALS: Ht 193 cm; Wt 92.8 kg
[~2022-05-25 10:57] MED LIST changes: -AMLO5TAB16 PO; +ASCO500C18 PO; +CHOL20002 PO; -CHOL5000 PO; +FERR-106 PO; -FLO0.4C PO; +FURO40TA4 PO; +MULT-1219 PO; -NAPR-996 PO; -PRED1TAB PO
[2022-05-25 12:30] LABS: EOSINOPHILS # (AUTO) 0.1 X10'3 (0-0.9); HEMOGLOBIN 10.5 g/dl (14.0-17.9); LYMPHOCYTES # (AUTO) 0.4 X10'3 (1.1-4.8); MONOCYTES # (AUTO) 0.5 X10'3 (0-0.9)
[2022-05-25 12:32] LABS: BASOPHILS % (AUTO) 0.4 % (0-1); EOSINOPHILS % (AUTO) 1.4 % (0-6); HEMATOCRIT 34.3 % (42.0-52.0); LYMPHOCYTES % (AUTO) 6.2 % (21-51); MEAN CORPUSCULAR HEMOGLOBIN 26.7 PG (27.0-31.0); MEAN CORPUSCULAR HGB CONC 30.7 g/dL (33.0-36.5); MEAN CORPUSCULAR VOLUME 86.8 FL (78-98); MEAN PLATELET VOLUME 9.7 FL (7.4-10.4); MONOCYTES % (AUTO) 7.3 % (2-12); NEUTROPHILS # (AUTO) 5.8 X10'3 (1.8-7.7); NEUTROPHILS % (AUTO) 84.7 % (42-75); PLATELET COUNT 314 X10'3 (140-440); RED BLOOD COUNT 3.95 X10'6 (4.70-6.10); RED CELL DISTRIBUTION WIDTH 23.4 % (11.5-14.5); WHITE BLOOD COUNT 6.8 X10'3 (4.5-11.0)
[2022-05-25 12:45] LABS: ALANINE AMINOTRANSFERASE 10 U/L (12-78); ALBUMIN 2.4 G/DL (3.4-5.0); ALBUMIN/GLOBULIN RATIO 0.5 (1.1-1.5); ALKALINE PHOSPHATASE 79 IU/L (46-116); ANION GAP 15 (8-16); ASPARTATE AMINO TRANSFERASE 11 U/L (10-37); BILIRUBIN,TOTAL 0.4 MG/DL (0.1-1.0); BLOOD UREA NITROGEN 98 MG/DL (7-18); BUN/CREATININE RATIO 10.2 (10.0-20.0); CALCIUM 8.8 MG/DL (8.5-10.1); CHLORIDE 111 MMOL/L (99-107); CREATININE 9.57 MG/DL (0.60-1.10); GLUCOSE 112 MG/DL (70-104); LIPASE 57 U/L (73-393); POTASSIUM 5.4 MMOL/L (3.5-5.1); SODIUM 149 MMOL/L (135-145); TOTAL CARBON DIOXIDE 22.8 MMOL/L (24-32); TOTAL PROTEIN 6.8 G/DL (6.4-8.2); eGFR 5 ML/MIN
[2022-05-25 13:04] LABS: PLATELET ESTIMATE NORMAL
[2022-05-25 13:05] LABS: ANISOCYTOSIS 3+; HYPOCHROMASIA 1+; POLYCHROMASIA 1+
[2022-05-25 13:06] LABS: ROULEAUX 1+; SCHISTOCYTES FEW; SPHEROCYTES 1+
[2022-05-25 13:07] LABS: ELLIPTOCYTES 2+; TEAR DROP CELLS FEW
[2022-05-25] MEDS ORDERED: sodium polystyrene sulfonate 15gm/60ml oral suspension PO ONE (14:30)
[2022-05-25] MEDS ORDERED: albuterol 2.5 MG/3 ML nebule CONTNEB PRN (14:35)
[2022-05-25 16:13] LABS: CLARITY,URINE SLIGHTLY CLOUDY (Clear); COLOR,URINE YELLOW (Yellow); GLUCOSE, URINE NEGATIVE (Neg); KETONES,URINE NEGATIVE (Neg); LEUKOCYTE ESTERASE ,URINE NEGATIVE (Neg); NITRITES, URINE NEGATIVE (Neg); OCCULT BLOOD,URINE LARGE (Neg); PROTEIN,URINE 100 mg/dl (Neg); UROBILINOGEN,URINE 0.2 E.U/dL (0.2-1.0)
[2022-05-25 16:16] LABS: UA COLLECTION TYPE CLN CATCH MIDSTREAM
[2022-05-25 16:24] LABS: BACTERIA,URINE FEW /HPF (Neg); MUCUS STRANDS FEW /LPF (Neg); RBC,URINE 50-100 /HPF (0-2); SQUAMOUS EPITHELIAL CELL,UR FEW /LPF (FEW); WBC,URINE 0-4 /HPF (0-4)
[2022-05-25 16:25] LABS: HYALINE CASTS 0-3 /LPF (NEGATIVE)
[2022-05-25 17:14] LABS: ALANINE AMINOTRANSFERASE 9 U/L (12-78); ALBUMIN 2.4 G/DL (3.4-5.0); ALBUMIN/GLOBULIN RATIO 0.6 (1.1-1.5); ALKALINE PHOSPHATASE 77 IU/L (46-116); ANION GAP 16 (8-16); ASPARTATE AMINO TRANSFERASE 7 U/L (10-37); BILIRUBIN,TOTAL 0.4 MG/DL (0.1-1.0); BLOOD UREA NITROGEN 98 MG/DL (7-18); CHLORIDE 112 MMOL/L (99-107); CREATININE 9.84 MG/DL (0.60-1.10); GLUCOSE 130 MG/DL (70-104); SODIUM 150 MMOL/L (135-145); TOTAL CARBON DIOXIDE 22.3 MMOL/L (24-32); TOTAL PROTEIN 6.6 G/DL (6.4-8.2); eGFR 5 ML/MIN
[2022-05-25 17:17] LABS: CALCIUM 8.8 MG/DL (8.5-10.1)
--- NOTE | 2022-05-25 18:41 | NUR ---
RECIEVED REPORT FROM GABRIEL MIKE ASSUMING CARE OF PT RESTING QUIETLY MONITOR LEADS ON AND FUNCTIONING. HR 111 SAT 96%.
[2022-05-25] MEDS ORDERED: sodium bicarbonate (8.4%) inj. 50 MEQ in dextrose 5%-water 1,000 ML IV ONE (18:45)
[2022-05-25] MEDS ORDERED: LidoCAINE 2% Topical Jelly 11mL syringe TOP ONE (19:35)
--- NOTE | 2022-05-25 20:58 | NUR ---
PT UP TO BSC WITH SBA. NEW PLAN OF CARE REVIEWED WITH PT HE AGREED TO FC INSERTION ALL QUESTIONS AND CONCERNS ADDRESSED TO PT'S VERBAL SATISFACTION.
[2022-05-25] MEDS ORDERED: acetaminophen 650mg rectal suppository RC PRN (21:00)
[2022-05-25] MEDS ORDERED: diphenhydrAMINE 25mg capsule PO PRN (21:00)
[2022-05-25] MEDS ORDERED: mag hydrox/Alum hydrox/simeth 30ml oral suspension PO PRN (21:00)
[2022-05-25] MEDS ORDERED: ondansetron 4mg rapidly disintigrating tab PO PRN (21:00)
[2022-05-25] MEDS ORDERED: ipratropium/albuterol 3ml nebule NEB PRN (21:00)
[2022-05-25] MEDS ORDERED: temazepam 15mg capsule PO PRN (21:00)
[2022-05-25] MEDS ORDERED: bisacodyl 10mg suppository rectal RC PRN (21:00)
[2022-05-25] MEDS ORDERED: magnesium hydroxide 30ml (MOM) UD suspension PO PRN (21:00)
[2022-05-25] MEDS ORDERED: diphenhydrAMINE 50 mg/ml inj IV PRN (21:00)
[2022-05-25] MEDS ORDERED: acetaminophen 325mg tablet PO PRN ×2 (21:00)
--- NOTE | 2022-05-25 21:17 | NUR ---
PT ASSISTED BACK TO BED BM NOTED IN BSC. ELA TEACHER AT BEDSIDE.
[2022-05-25 21:51] LABS: APTT 31 SECONDS (22-32); D-DIMER 3.94 MG/L FEU (0-0.50)
[2022-05-25 21:54] LABS: HEMOGLOBIN A1C 5.8 % (4.5-6.2)
[2022-05-25 21:57] LABS: C-REACTIVE PROTEIN 6.36 MG/DL (0.0-0.5); CREATINE KINASE 35 U/L (39-308); MAGNESIUM 2.5 MG/DL (1.5-2.4); PHOSPHORUS 8.1 MG/DL (2.3-4.5)
[2022-05-25 22:10] LABS: URINE AMPHETAMINE SCREEN NEGATIVE (Neg); URINE BARBITUATE SCREEN NEGATIVE (Neg); URINE BENZODIAZEPINES SCREEN NEGATIVE (Neg); URINE CANNABINOID SCREEN NEGATIVE (Neg); URINE COCAINE SCREEN NEGATIVE (Neg); URINE METHADONE SCREEN NEGATIVE (Neg); URINE OPIATE SCREEN NEGATIVE (Neg); URINE PHENCYCLIDINE SCREEN NEGATIVE (Neg)
[2022-05-25] MEDS: dextrose 5%-1/2 normal saline 1,000 ML IV SCH (22:29)
--- NOTE | 2022-05-25 22:47 | NUR ---
[id number] DR FRANCISCO CALLED FOR CLARIFICATION ON IVF ORDER. NEW FLUIDS D5 12 NS TO INFUSE 100ML/HR NOTED. UNABLE TO IMPLEMENT IMMEDIATELY D/T PT UP TO BEDSIDE COMMODE. IVF NOW INFUSING VIA PUMP PER ORDER.
[2022-05-26] MEDS ORDERED: AMIO200T61 PO (00:07)
[2022-05-26] MEDS ORDERED: AMLO5TAB16 PO (00:07)
[2022-05-26] MEDS ORDERED: METO25TA6 PO (00:07)
[2022-05-26] MEDS ORDERED: ROSU10TA28 PO (00:07)
[2022-05-26] MEDS ORDERED: ASPI-920 PO (00:07)
[2022-05-26] MEDS ORDERED: LOSA50TA64 PO (00:07)
[2022-05-26] MEDS ORDERED: DOCU-22 PO (00:07)
[2022-05-26] MEDS ORDERED: FURO40TA4 PO (00:09)
[2022-05-26] MEDS ORDERED: CefTRIAXone/D5W-Rocephin 1gm 50 ML IV SCH (01:30)
--- NOTE | 2022-05-26 01:43 | NUR ---
REPORT GIVEN TO NAVJOT MIKE ASSUMING CARE OF PT ON ORTHO NEURO FLOOR RM 3414
--- NOTE | 2022-05-26 01:47 | NUR ---
Report given to me by Alana MIKE from ER.
--- NOTE | 2022-05-26 01:55 | NUR ---
PT TRANSFERRED TO NEURO FLOOR VIA WC BY RESTORATION SILVERSMITH
--- NOTE | 2022-05-26 01:55 | NUR ---
Joseph javed in [facility] - 05/26/22 at 0156 by SHAY REPORT GIVEN TO NAVJOT MIKE ASSUMING CARE OF PT
[2022-05-26 02:00] VITALS: BP 146/89
[2022-05-26] MEDS ORDERED: azithromycin/NS 500mg/250ml 250 ML IV SCH (02:00)
--- NOTE | 2022-05-26 04:03 | NUR ---
Called Dr. Cuevas for bipap order like he uses at home, order given and I paged Rt for machine. They will bring machine by if able but are asking that his bring his in for use since it will work better than the ones we have for his face.
[2022-05-26] MEDS: ondansetron/PF 4mg/2ml inj IV PRN (04:39)
[2022-05-26 06:00] VITALS: BP 119/77
[2022-05-26 06:26] LABS: EOSINOPHILS # (AUTO) 0.1 X10'3 (0-0.9); HEMATOCRIT 31.1 % (42.0-52.0); HEMOGLOBIN 9.6 g/dl (14.0-17.9); LYMPHOCYTES # (AUTO) 0.3 X10'3 (1.1-4.8); MEAN CORPUSCULAR HEMOGLOBIN 26.9 PG (27.0-31.0); NEUTROPHILS # (AUTO) 5.8 X10'3 (1.8-7.7); WHITE BLOOD COUNT 6.7 X10'3 (4.5-11.0)
[2022-05-26 06:28] LABS: BASOPHILS % (AUTO) 0.5 % (0-1); EOSINOPHILS % (AUTO) 0.8 % (0-6); LYMPHOCYTES % (AUTO) 5.1 % (21-51); MEAN CORPUSCULAR HGB CONC 30.9 g/dL (33.0-36.5); MEAN CORPUSCULAR VOLUME 87.1 FL (78-98); MEAN PLATELET VOLUME 9.9 FL (7.4-10.4); MONOCYTES # (AUTO) 0.5 X10'3 (0-0.9); MONOCYTES % (AUTO) 7.9 % (2-12); NEUTROPHILS % (AUTO) 85.7 % (42-75); PLATELET COUNT 277 X10'3 (140-440); RED BLOOD COUNT 3.58 X10'6 (4.70-6.10); RED CELL DISTRIBUTION WIDTH 23.3 % (11.5-14.5)
[2022-05-26 06:31] LABS: ALANINE AMINOTRANSFERASE 11 U/L (12-78); ALBUMIN 2.2 G/DL (3.4-5.0); ALBUMIN/GLOBULIN RATIO 0.6 (1.1-1.5); ALKALINE PHOSPHATASE 73 IU/L (46-116); ANION GAP 15 (8-16); ASPARTATE AMINO TRANSFERASE 10 U/L (10-37); BILIRUBIN,TOTAL 0.3 MG/DL (0.1-1.0); BLOOD UREA NITROGEN 97 MG/DL (7-18); BUN/CREATININE RATIO 10.1 (10.0-20.0); CALCIUM 8.2 MG/DL (8.5-10.1); CHLORIDE 112 MMOL/L (99-107); CHOL/HDL RATIO 2.9 (0.00-4.99); CHOLESTEROL 124 MG/DL (0-200); CREATININE 9.58 MG/DL (0.60-1.10); GLUCOSE 122 MG/DL (70-104); HDL CHOLESTEROL 43 MG/DL (35-60); LDL CHOLESTEROL 73 MG/DL (50-100); POTASSIUM 4.6 MMOL/L (3.5-5.1); SODIUM 150 MMOL/L (135-145); TOTAL CARBON DIOXIDE 22.6 MMOL/L (24-32); TOTAL PROTEIN 6.1 G/DL (6.4-8.2); TRIGLYCERIDES 63 MG/DL (20-135); eGFR 5 ML/MIN
--- NOTE | 2022-05-26 06:43 | NUR ---
Problems reprioritized. Patient report given, questions answered & plan of care reviewed with Андрей MIKE.
[2022-05-26 06:56] LABS: ANISOCYTOSIS 3+; ELLIPTOCYTES 1+; PLATELET ESTIMATE NORMAL; POIKILOCYTOSIS FEW; POLYCHROMASIA FEW
[2022-05-26] MEDS ORDERED: furosemide 40mg/4ml inj IV SCH (08:00)
[2022-05-26] MEDS: pantoprazole 40mg Tablet.DR PO SCH (08:51)
[2022-05-26] MEDS: docusate sod 100mg capsule PO SCH ×2 (08:51→20:00)
[2022-05-26] MEDS: heparin, porcine 5000 units/ml vial SQ SCH ×2 (08:53→20:44)
--- NOTE | 2022-05-26 09:27 | NUR ---
Co-signed for Miriam Sanchez, nursing informatics analyst meds given to pt.
[2022-05-26] MEDS: dextrose 5%-1/2 normal saline 1,000 ML IV SCH (09:31)
[2022-05-26 10:00] VITALS: BP 119/75
[2022-05-26] MEDS ORDERED: dextrose 5%-1/2 normal saline 1,000 ML IV SCH (11:00)
[2022-05-26] MEDS ORDERED: docusate sod 100mg capsule PO PRN (11:05)
[2022-05-26 14:47] VITALS: BP 139/85
[2022-05-26 18:00] VITALS: BP 136/84
--- NOTE | 2022-05-26 18:00 | NUR ---
Patient in room ORTHO 4021. I have received report from Андрей,RN and Miriam ,administrative nursing supervisor and had the opportunity to ask questions and assume patient care.
[2022-05-26] MEDS: ROSUVASTATIN CALCIUM 5 MG TABLET PO SCH (20:44)
[2022-05-26 22:00] VITALS: BP 137/87
[2022-05-27 06:00] VITALS: BP 129/75
[2022-05-27] MEDS ORDERED: vancomycin/NS 1 GM ADD-VANTAGE 250 ML IV PRN (06:25)
[2022-05-27] MEDS ORDERED: vancomycin/NS 1 GM ADD-VANTAGE 250 ML IV ONE (06:25)
--- NOTE | 2022-05-27 06:27 | NUR ---
Problems reprioritized. Patient report given, questions answered & plan of care reviewed with CEE Faria.
[2022-05-27 06:33] LABS: ALANINE AMINOTRANSFERASE 11 U/L (12-78); ALBUMIN 2.1 G/DL (3.4-5.0); ALBUMIN/GLOBULIN RATIO 0.5 (1.1-1.5); ALKALINE PHOSPHATASE 72 IU/L (46-116); ANION GAP 15 (8-16); ASPARTATE AMINO TRANSFERASE 9 U/L (10-37); BILIRUBIN,TOTAL 0.4 MG/DL (0.1-1.0); BLOOD UREA NITROGEN 92 MG/DL (7-18); BUN/CREATININE RATIO 9.2 (10.0-20.0); CALCIUM 8.4 MG/DL (8.5-10.1); CHLORIDE 112 MMOL/L (99-107); CREATININE 9.99 MG/DL (0.60-1.10); GLUCOSE 110 MG/DL (70-104); LACTATE DEHYDROGENASE 283 U/L (85-227); SODIUM 149 MMOL/L (135-145); TOTAL CARBON DIOXIDE 22.2 MMOL/L (24-32); eGFR 5 ML/MIN
[2022-05-27 06:34] LABS: EOSINOPHILS # (AUTO) 0.1 X10'3 (0-0.9); HEMOGLOBIN 9.6 g/dl (14.0-17.9); LYMPHOCYTES # (AUTO) 0.5 X10'3 (1.1-4.8); MONOCYTES # (AUTO) 0.6 X10'3 (0-0.9); NEUTROPHILS # (AUTO) 5.6 X10'3 (1.8-7.7)
[2022-05-27 06:36] LABS: BASOPHILS % (AUTO) 0.6 % (0-1); EOSINOPHILS % (AUTO) 1.1 % (0-6); HEMATOCRIT 30.2 % (42.0-52.0); MEAN CORPUSCULAR HEMOGLOBIN 27.6 PG (27.0-31.0); MEAN CORPUSCULAR HGB CONC 31.7 g/dL (33.0-36.5); MEAN CORPUSCULAR VOLUME 86.9 FL (78-98); MEAN PLATELET VOLUME 10.8 FL (7.4-10.4); MONOCYTES % (AUTO) 8.9 % (2-12); NEUTROPHILS % (AUTO) 82.4 % (42-75); PLATELET COUNT 275 X10'3 (140-440); RED BLOOD COUNT 3.47 X10'6 (4.70-6.10); RED CELL DISTRIBUTION WIDTH 23.4 % (11.5-14.5); WHITE BLOOD COUNT 6.8 X10'3 (4.5-11.0)
[2022-05-27 06:40] LABS: RHEUM FACTOR QUAL REFLEX TITER NEGATIVE (Neg)
--- NOTE | 2022-05-27 06:49 | NUR ---
Patient in room ORTHO 4021. I have received report from CEE Farah and had the opportunity to ask questions and assume patient care.
[2022-05-27] MEDS ORDERED: vancomycin inj. 750 MG in normal saline 250ml IV soln 250 ML IV SCH (08:00)
[2022-05-27 08:10] LABS: PLATELET ESTIMATE NORMAL
[2022-05-27 08:11] LABS: HYPOCHROMASIA 1+; POLYCHROMASIA FEW
[2022-05-27] MEDS: docusate sod 100mg capsule PO SCH ×2 (08:13→20:29)
[2022-05-27] MEDS: amiodarone 200mg tablet PO SCH (08:13)
[2022-05-27] MEDS: pantoprazole 40mg Tablet.DR PO SCH (08:13)
[2022-05-27] MEDS: ascorbic acid 500mg tablet PO SCH (08:13)
[2022-05-27 08:14] LABS: ANISOCYTOSIS 3+; ELLIPTOCYTES 1+; TEAR DROP CELLS 1+
[2022-05-27] MEDS: multivitamins, therapeutics tablet PO SCH (08:14)
[2022-05-27] MEDS: losartan 50mg tablet PO SCH (08:14)
[2022-05-27] MEDS: cholecalciferol (vitamin D3) 1,000 unit (25mcg) tablet PO SCH (08:14)
[2022-05-27] MEDS: metoprolol tartrate 25mg tablet PO SCH (08:14)
[2022-05-27 08:15] LABS: BURR CELLS FEW; STOMATOCYTES FEW
[2022-05-27] MEDS: heparin, porcine 5000 units/ml vial SQ SCH ×2 (08:16→20:29)
--- NOTE | 2022-05-27 09:41 | NUR ---
Page Sent PAGER ID: [phone] MESSAGE: [id number] KAITLYNNLACIE, PT HAS CR 9.99, BUN 92, BUN 5, WITH THIS DO YOU STILL WANT THIS PT TO GET A VANCO THAT WAS ORDERED ONE TIME LAST NIGHT? PLEASE CALL ME BACK SOON YOU CAN..... WILL WAIT TILL I HEAR BACK, GEORGETTE [phone]
[2022-05-27] MEDS ORDERED: tuberculin, purif. prot. deriv. 5 units/0.1ml ID ONE (10:20)
[2022-05-27 11:00] VITALS: BP 122/72
--- NOTE | 2022-05-27 11:40 | NUR ---
PER DR MCCARTHY, HE SAID TO GO AHEAD AND GIVE PT VANCO PER PHARMACIST DOSE HE IS AWARE OF THE KIDNEY FUNCTION, I CALLED AND IT IS DOSED CORRECT PER PHARMACIST. WILL ADMIN THIS
[2022-05-27 14:00] VITALS: BP 133/74
[2022-05-27] MEDS: ondansetron/PF 4mg/2ml inj IV PRN (14:59)
[2022-05-27 15:00] VITALS: BP 133/74
[2022-05-27] MEDS: furosemide 10 MG/1 ML 10ml inj IV SCH (16:32)
[2022-05-27 18:00] VITALS: BP 145/86
--- NOTE | 2022-05-27 18:40 | NUR ---
Problems reprioritized. Patient report given, questions answered & plan of care reviewed with BROWN MIKE.
--- NOTE | 2022-05-27 19:09 | NUR ---
BONDING AGENT documentation: I have reviewed and agree with all interventions, assessments performed and documented by ENRIQUE BURLESON .
[2022-05-27] MEDS: ROSUVASTATIN CALCIUM 5 MG TABLET PO SCH (20:29)
[2022-05-28] MEDS: furosemide 10 MG/1 ML 10ml inj IV SCH ×3 (00:48→16:00)
[2022-05-28] MEDS: VANCOMYCIN LEVEL IV SCH (03:00)
[2022-05-28 06:00] VITALS: BP 147/86
[2022-05-28 06:17] LABS: EOSINOPHILS # (AUTO) 0.1 X10'3 (0-0.9); EOSINOPHILS % (AUTO) 1.6 % (0-6); HEMOGLOBIN 9.6 g/dl (14.0-17.9); LYMPHOCYTES # (AUTO) 0.6 X10'3 (1.1-4.8)
[2022-05-28 06:20] LABS: BASOPHILS % (AUTO) 0.4 % (0-1); HEMATOCRIT 31.6 % (42.0-52.0); LYMPHOCYTES % (AUTO) 9.8 % (21-51); MEAN CORPUSCULAR HEMOGLOBIN 26.7 PG (27.0-31.0); MEAN CORPUSCULAR HGB CONC 30.4 g/dL (33.0-36.5); MEAN CORPUSCULAR VOLUME 87.8 FL (78-98); MONOCYTES # (AUTO) 0.6 X10'3 (0-0.9); MONOCYTES % (AUTO) 9.7 % (2-12); NEUTROPHILS # (AUTO) 4.7 X10'3 (1.8-7.7); NEUTROPHILS % (AUTO) 78.5 % (42-75); PLATELET COUNT 274 X10'3 (140-440)
[2022-05-28 06:27] LABS: ALANINE AMINOTRANSFERASE 8 U/L (12-78); ALBUMIN 2.1 G/DL (3.4-5.0); ALBUMIN/GLOBULIN RATIO 0.6 (1.1-1.5); ALKALINE PHOSPHATASE 75 IU/L (46-116); ANION GAP 15 (8-16); ASPARTATE AMINO TRANSFERASE 10 U/L (10-37); BILIRUBIN,TOTAL 0.3 MG/DL (0.1-1.0); BLOOD UREA NITROGEN 93 MG/DL (7-18); BUN/CREATININE RATIO 9.2 (10.0-20.0); CALCIUM 8.4 MG/DL (8.5-10.1); CHLORIDE 110 MMOL/L (99-107); CREATININE 10.14 MG/DL (0.60-1.10); GLUCOSE 92 MG/DL (70-104); POTASSIUM 5.1 MMOL/L (3.5-5.1); SODIUM 147 MMOL/L (135-145); TOTAL CARBON DIOXIDE 21.7 MMOL/L (24-32); TOTAL PROTEIN 5.9 G/DL (6.4-8.2); VANCOMYCIN,RANDOM 7.9 UG/ML; eGFR 5 ML/MIN
[2022-05-28 07:03] LABS: PLATELET ESTIMATE NORMAL
[2022-05-28 07:04] LABS: ANISOCYTOSIS 3+; LARGE PLATELETS FEW; POIKILOCYTOSIS 3+; TEAR DROP CELLS 2+
[2022-05-28 07:05] LABS: ELLIPTOCYTES 2+; HYPOCHROMASIA 1+; MICROCYTOSIS 1+; SCHISTOCYTES 1+
[2022-05-28] MEDS ORDERED: vancomycin/NS 1 GM ADD-VANTAGE 250 ML X 1 DOSE IV ONE (08:00)
[2022-05-28] MEDS ORDERED: EPOETIN ALFA-EPBX 20,000 UNIT/ML 1 ML MDV IV ONE (08:00)
[2022-05-28] MEDS ORDERED: carVEDilol 3.125mg tablet PO SCH (08:00)
[2022-05-28] MEDS ORDERED: heparin 1,000unit/ml 10ml vial 10 ML IV ONE (08:00)
[2022-05-28] MEDS: heparin, porcine 5000 units/ml vial SQ SCH ×2 (08:00→21:10)
[2022-05-28] MEDS ORDERED: heparin 1,000 units/ml 10ml inj HE ONE ×2 (08:00)
[2022-05-28] MEDS ORDERED: heparin 1,000 units/ml 10ml inj IV ONE (08:00)
[2022-05-28] MEDS ORDERED: albumin (human) 25% 100ml IV 100 ML IV PRN (08:00)
[2022-05-28] MEDS: pantoprazole 40mg Tablet.DR PO SCH (08:13)
[2022-05-28] MEDS: docusate sod 100mg capsule PO SCH ×2 (08:13→21:08)
[2022-05-28] MEDS: amiodarone 200mg tablet PO SCH (08:14)
[2022-05-28] MEDS: metoprolol tartrate 25mg tablet PO SCH (08:14)
[2022-05-28] MEDS: losartan 50mg tablet PO SCH (08:14)
[2022-05-28] MEDS: ascorbic acid 500mg tablet PO SCH (08:15)
[2022-05-28] MEDS: multivitamins, therapeutics tablet PO SCH (08:15)
[2022-05-28] MEDS: cholecalciferol (vitamin D3) 1,000 unit (25mcg) tablet PO SCH (08:15)
--- NOTE | 2022-05-28 08:30 | NUR ---
i reviewed physiotherapy aide physical assessment of pt
--- NOTE | 2022-05-28 11:08 | NUR ---
Paged angio r/t TDC placement
--- NOTE | 2022-05-28 11:20 | NUR ---
called darrick about calling about having pt tdc placed today, darrick told me that they will have it placed today but did not give me a time
[2022-05-28] MEDS ORDERED: heparin 1,000unit/ml 10ml vial 10 ML ONE (13:30)
[2022-05-28] MEDS ORDERED: LIDOcaine 1% 30ml preserv. free vial ONE (13:31)
[2022-05-28] MEDS ORDERED: fentaNYL/PF 50MCG/1 ML 2ML syringe ONE (14:23)
[2022-05-28 15:00] VITALS: BP 126/78
--- NOTE | 2022-05-28 15:27 | NUR ---
okayed pre-opt assessment with dialysis nurse on tele machine
[2022-05-28 15:33] VITALS: BP 128/74
--- NOTE | 2022-05-28 18:17 | NUR ---
gave report to bhavna mckeon
[2022-05-28 19:30] VITALS: BP 130/75
[2022-05-28] MEDS: ROSUVASTATIN CALCIUM 5 MG TABLET PO SCH (21:08)
[2022-05-28 22:00] VITALS: BP 125/77
[2022-05-29] MEDS: furosemide 10 MG/1 ML 10ml inj IV SCH ×4 (00:44→16:00)
[2022-05-29 02:00] VITALS: BP 127/72
[2022-05-29] MEDS: VANCOMYCIN LEVEL IV SCH (03:00)
[2022-05-29 06:00] VITALS: BP 128/72
[2022-05-29 06:07] LABS: HEMOGLOBIN 9.8 g/dl (14.0-17.9); MONOCYTES # (AUTO) 0.5 X10'3 (0-0.9); WHITE BLOOD COUNT 6.3 X10'3 (4.5-11.0)
[2022-05-29 06:09] LABS: BASOPHILS % (AUTO) 0.8 % (0-1); EOSINOPHILS # (AUTO) 0.2 X10'3 (0-0.9); EOSINOPHILS % (AUTO) 2.4 % (0-6); HEMATOCRIT 31.3 % (42.0-52.0); LYMPHOCYTES # (AUTO) 0.6 X10'3 (1.1-4.8); LYMPHOCYTES % (AUTO) 9.2 % (21-51); MEAN CORPUSCULAR HGB CONC 31.2 g/dL (33.0-36.5); MEAN CORPUSCULAR VOLUME 86.5 FL (78-98); MEAN PLATELET VOLUME 10.1 FL (7.4-10.4); MONOCYTES % (AUTO) 8.1 % (2-12); NEUTROPHILS # (AUTO) 5.1 X10'3 (1.8-7.7); NEUTROPHILS % (AUTO) 79.5 % (42-75); PLATELET COUNT 242 X10'3 (140-440); RED BLOOD COUNT 3.62 X10'6 (4.70-6.10); RED CELL DISTRIBUTION WIDTH 23.6 % (11.5-14.5)
[2022-05-29 06:30] LABS: ALANINE AMINOTRANSFERASE 8 U/L (12-78); ALBUMIN 1.9 G/DL (3.4-5.0); ALBUMIN/GLOBULIN RATIO 0.5 (1.1-1.5); ALKALINE PHOSPHATASE 73 IU/L (46-116); ANION GAP 13 (8-16); ASPARTATE AMINO TRANSFERASE 10 U/L (10-37); BILIRUBIN,TOTAL 0.4 MG/DL (0.1-1.0); BLOOD UREA NITROGEN 77 MG/DL (7-18); BUN/CREATININE RATIO 9.4 (10.0-20.0); CALCIUM 8.5 MG/DL (8.5-10.1); CHLORIDE 107 MMOL/L (99-107); CREATININE 8.16 MG/DL (0.60-1.10); GLUCOSE 82 MG/DL (70-104); POTASSIUM 5.1 MMOL/L (3.5-5.1); SODIUM 145 MMOL/L (135-145); TOTAL CARBON DIOXIDE 24.9 MMOL/L (24-32); VANCOMYCIN,RANDOM 14.3 UG/ML; eGFR 6 ML/MIN
--- NOTE | 2022-05-29 06:36 | NUR ---
Patient in room ORTHO 4021. I have received report from CEE Sy and had the opportunity to ask questions and assume patient care.
[2022-05-29] MEDS ORDERED: EPOETIN ALFA-EPBX 20,000 UNIT/ML 1 ML MDV IV ONE (06:55)
[2022-05-29] MEDS ORDERED: albumin (human) 25% 100ml IV 100 ML IV PRN (06:55)
[2022-05-29] MEDS ORDERED: heparin 1,000 units/ml 10ml inj IV ONE (06:55)
[2022-05-29] MEDS ORDERED: heparin 1,000unit/ml 10ml vial 10 ML IV ONE (06:55)
[2022-05-29] MEDS ORDERED: heparin 1,000 units/ml 10ml inj HE ONE ×2 (07:00)
[2022-05-29 07:11] LABS: ANISOCYTOSIS 3+; GIANT PLATELET FEW; LARGE PLATELETS MODERATE; PLATELET ESTIMATE NORMAL
[2022-05-29 07:13] LABS: ELLIPTOCYTES 1+; MICROCYTOSIS 1+
[2022-05-29 07:14] LABS: ACANTHOCYTES FEW; SCHISTOCYTES 1+
[2022-05-29] MEDS: metoprolol tartrate 25mg tablet PO SCH (08:00)
[2022-05-29] MEDS: losartan 50mg tablet PO SCH (08:00)
[2022-05-29] MEDS ORDERED: vancomycin/NS 1 GM ADD-VANTAGE 250 ML IV ONE (08:00)
[2022-05-29] MEDS: pantoprazole 40mg Tablet.DR PO SCH (08:24)
[2022-05-29] MEDS: ascorbic acid 500mg tablet PO SCH (08:25)
[2022-05-29] MEDS: multivitamins, therapeutics tablet PO SCH (08:25)
[2022-05-29] MEDS: docusate sod 100mg capsule PO SCH ×2 (08:25→20:55)
[2022-05-29] MEDS: cholecalciferol (vitamin D3) 1,000 unit (25mcg) tablet PO SCH (08:25)
[2022-05-29] MEDS: heparin, porcine 5000 units/ml vial SQ SCH ×2 (08:26→19:35)
--- NOTE | 2022-05-29 09:25 | NUR ---
charge nurse discussed with dr willard that the pt can have amiodarone and lasix 8 ml before dialysis and hold everything else, as long as parameters are met.
[2022-05-29] MEDS: amiodarone 200mg tablet PO SCH (09:53)
[2022-05-29 10:00] VITALS: BP 142/69
[2022-05-29 11:26] LABS: ANTISTREPTOLYSIN O AB 84.2 IU/mL (0.0-200.0); COMPLEMENT C3, SERUM 111 mg/dL (82-167); COMPLEMENT C4, SERUM 28 mg/dL (12-38)
--- NOTE | 2022-05-29 11:30 | NUR ---
Informed Dr Huang of patient having blood tinged urine in catheter. Unsure if related to trama, stated to continue to monitor for blood clots.
--- NOTE | 2022-05-29 14:00 | NUR ---
PRESSURE ULCER EDUCATION: DEFINITION: A pressure ulcer is an area of skin that breaks down when you stay in one position too long. The constant pressure against the skin reduces the blood flow to that area and the affected tissue dies. CAUSES: "Being bedridden or in a wheelchair "Fragile skin "Having a chronic condition, such as diabetes or vascular disease "Inability to move certain parts of your body without assistance "Older age "Incontinence of urine or stool SYMPTOMS: "A reddened area that DOES NOT turn white when pressed on - this can be the beginning of a pressure ulcer "A blister, deep sore or a crater - these can be advanced pressure ulcers FIRST AID: "Relieve the pressure on this area "Keep the area clean and dry "Call your primary doctor if you see any of the above symptoms "DO NOT massage the area "DO NOT use a donut shaped or ring shaped pillow- these actually interfere with the blood flow and cause complications PREVENTION: "Check for pressure ulcers everyday "Change position at least every two hours to relieve pressure "Use items that help relieve pressure- pillows, sheepskin, foam padding, and powders. "Keep skin clean and dry "Eat healthy well balanced meals "Exercise daily IF YOU SEE ANY OF THESE SYMPTOMS WHILE IN THE HOSPITAL - TELL YOUR NURSE IMMEDIATELY. IF YOU SEE ANY OF THESE SYMPTOMS WHILE AT HOME OR HAVE ANY QUESTIONS OR CONCERNS ABOUT PRESSURE ULCERS - CALL YOUR PRIMARY DOCTOR IMMEDIATELY. Addendum: 05/29/22 at 1401 by Kyara Olivia LVN Amended: Links added.
--- NOTE | 2022-05-29 15:15 | NUR ---
pt dialysis has ended, ledlecker director pushed the heparin for deaccessing the dialysis catheter. pt arrived back in his room, lung sounds have not changed from previous assessment along with rest of assessment nothing has changed since this AM. post dialysis vitals are bp 139/86 hr 76, 97% 2L, RR 16. no complaints of new SOB or chest pain.
--- NOTE | 2022-05-29 16:45 | NUR ---
CNC OPERATOR documentation: I have reviewed and agree with all interventions, assessments performed and documented by Sandip BURLESON.
[2022-05-29 17:42] LABS: HEP B CORE AB, TOT Negative (Negative)
[2022-05-29 17:42] LABS: ANTINUCLEAR ANTIBODIES Negative (Negative); HBSAG SCREEN Negative (Negative)
[2022-05-29 18:00] VITALS: BP 131/81
--- NOTE | 2022-05-29 18:29 | NUR ---
Problems reprioritized. Patient report given, questions answered & plan of care reviewed with nohemy rn.
[2022-05-29] MEDS: ROSUVASTATIN CALCIUM 5 MG TABLET PO SCH (20:54)
[2022-05-29 22:26] VITALS: BP 150/87
--- NOTE | 2022-05-30 | NUR ---
Pt. is awake alert oriented appears depressed. Family member and spouse at bedside. Pt. has a peripheral IV SL and a right subclavian HD cath intact. Balderas with small amt yellow slightly cloudy urine with light brown sediment. Pt. had hematuria in previous shift. Will hold Heparin tonight. Plan for Hemodialysis today.
[2022-05-30] MEDS: furosemide 10 MG/1 ML 10ml inj IV SCH (00:27)
[2022-05-30 02:34] VITALS: BP 148/88
[2022-05-30] MEDS: VANCOMYCIN LEVEL IV SCH (03:00)
[2022-05-30 06:00] VITALS: BP 145/89
[2022-05-30 06:37] LABS: BASOPHILS % (AUTO) 0.6 % (0-1); EOSINOPHILS # (AUTO) 0.1 X10'3 (0-0.9); EOSINOPHILS % (AUTO) 2.3 % (0-6); HEMATOCRIT 30.4 % (42.0-52.0); HEMOGLOBIN 9.4 g/dl (14.0-17.9); LYMPHOCYTES # (AUTO) 0.5 X10'3 (1.1-4.8); LYMPHOCYTES % (AUTO) 8.4 % (21-51); MEAN CORPUSCULAR HEMOGLOBIN 26.5 PG (27.0-31.0); MEAN CORPUSCULAR HGB CONC 30.8 g/dL (33.0-36.5); MEAN CORPUSCULAR VOLUME 86.2 FL (78-98); MEAN PLATELET VOLUME 10.6 FL (7.4-10.4); MONOCYTES # (AUTO) 0.6 X10'3 (0-0.9); MONOCYTES % (AUTO) 10.3 % (2-12); NEUTROPHILS # (AUTO) 4.4 X10'3 (1.8-7.7); NEUTROPHILS % (AUTO) 78.4 % (42-75); PLATELET COUNT 237 X10'3 (140-440); RED BLOOD COUNT 3.53 X10'6 (4.70-6.10); RED CELL DISTRIBUTION WIDTH 22.9 % (11.5-14.5); WHITE BLOOD COUNT 5.6 X10'3 (4.5-11.0)
[2022-05-30 07:01] LABS: ALANINE AMINOTRANSFERASE 9 U/L (12-78); ALBUMIN 1.9 G/DL (3.4-5.0); ALBUMIN/GLOBULIN RATIO 0.5 (1.1-1.5); ALKALINE PHOSPHATASE 70 IU/L (46-116); ANION GAP 12 (8-16); ASPARTATE AMINO TRANSFERASE 14 U/L (10-37); BILIRUBIN,TOTAL 0.5 MG/DL (0.1-1.0); BLOOD UREA NITROGEN 51 MG/DL (7-18); BUN/CREATININE RATIO 8.4 (10.0-20.0); CALCIUM 8.2 MG/DL (8.5-10.1); CHLORIDE 104 MMOL/L (99-107); CREATININE 6.04 MG/DL (0.60-1.10); GLUCOSE 98 MG/DL (70-104); POTASSIUM 4.4 MMOL/L (3.5-5.1); SODIUM 143 MMOL/L (135-145); TOTAL CARBON DIOXIDE 26.9 MMOL/L (24-32); TOTAL PROTEIN 5.8 G/DL (6.4-8.2); VANCOMYCIN,RANDOM 16.7 UG/ML; eGFR 9 ML/MIN
[2022-05-30] MEDS: ascorbic acid 500mg tablet PO SCH (07:52)
[2022-05-30] MEDS: multivitamins, therapeutics tablet PO SCH (07:52)
[2022-05-30] MEDS: pantoprazole 40mg Tablet.DR PO SCH (07:52)
[2022-05-30] MEDS: docusate sod 100mg capsule PO SCH ×2 (07:52→19:28)
[2022-05-30] MEDS: cholecalciferol (vitamin D3) 1,000 unit (25mcg) tablet PO SCH (07:52)
[2022-05-30] MEDS: heparin, porcine 5000 units/ml vial SQ SCH (07:52)
[2022-05-30] MEDS ORDERED: albumin (human) 25% 100ml IV 100 ML IV PRN (08:00)
[2022-05-30] MEDS: losartan 50mg tablet PO SCH (08:00)
[2022-05-30] MEDS: amiodarone 200mg tablet PO SCH (08:00)
[2022-05-30] MEDS ORDERED: heparin 1,000unit/ml 10ml vial 10 ML IV ONE (08:00)
[2022-05-30] MEDS ORDERED: heparin 1,000 units/ml 10ml inj HE ONE ×2 (08:00)
[2022-05-30] MEDS ORDERED: heparin 1,000 units/ml 10ml inj IV ONE (08:00)
[2022-05-30 08:21] LABS: ANISOCYTOSIS 3+; PLATELET ESTIMATE NORMAL
[2022-05-30 08:22] LABS: ELLIPTOCYTES 1+; LARGE PLATELETS MODERATE
[2022-05-30 08:23] LABS: SCHISTOCYTES FEW; TEAR DROP CELLS FEW
[2022-05-30 10:00] VITALS: BP 133/76
--- NOTE | 2022-05-30 12:15 | NUR ---
Initial: Pt admit DX acute respiratory failure from fluid overload, systolic heart failure, normocytic anemia, and MYKEL s/p TDC started on HD per EMR. Pt NPO outside of 5 meals so far this admit w/ poor intake ~38% avg of those meals as well not meeting needs. Pt seen by RD at bedside; pt reports frequent reflux and large amounts of gas in stomach impacting PO trends sometimes can't keep food down but trying best to eat. Pt report no issues chewing/swallowing simply reflux issues- is receiving routine simethicone and protonix having normal BM's last 05/28 per EMR. Pt is agreeable to try Nepro ONS TIDWM to assist meeting needs; MD notified. RD encouraged pt PO intake and to make food preferences known; pt acknowledges importance of nutrition intake. Will continue to follow. Rec: 1. continue regular diet; encourage PO 2. Nepro TIDWM; pending physician verification in EMR 3. routine vitamins C, D3, and MVI per MD 4. routine bowel regimen w/ antiflatulent and PPI per physician 5. Phos binder w/ meals if PO intake improves per physician discretion on HD 6. scaled wt this admit; subseqent wt w/ HD Addendum: 05/30/22 at [address] Amended: Links added.
--- NOTE | 2022-05-30 12:46 | NUR ---
pt going to dialysis with LIDIA MIKE.
--- NOTE | 2022-05-30 13:07 | NUR ---
Took pt from room 4021B to dialysis room 4009 with tech, with no incidents, accessed pt port for avionics systems technician and gave heparin per protocol, pt awake, alert, and comfortable
[2022-05-30 14:00] VITALS: BP 112/67
--- NOTE | 2022-05-30 17:00 | NUR ---
dialysis completed. pre dialysis vitals are 135/83, 85 hr. post dialysis vitals are 121/75, 80 hr. 3 L taken off. pt tolerated well. no s/s of pain or distress. Leticia Olmos RN accessed and deaccessed the pt. Leticia Olmos RN gave heparin pre and post dialysis. Checked on pt q30 min throughout dialysis process. 1715 pt back in room. cleaned up pt. put in new landis, due to previous one leaking. pt is up in chair eating dinner. Call light within reach.
[2022-05-30] MEDS: NUT.TX.IMP.RENAL FXN,LAC-REDUC (Nepro) 237 ML VANILLA PO SCH ×2 (17:14→18:32)
[2022-05-30] MEDS: simethicone 125mg capsule PO SCH ×2 (17:15→19:28)
[2022-05-30 18:00] VITALS: BP 157/88
[2022-05-30] MEDS: ROSUVASTATIN CALCIUM 5 MG TABLET PO SCH (19:28)
[2022-05-30 22:00] VITALS: BP 154/89
[2022-05-31] VITALS (24 sets, daily range): BP systolic 130–165; BP diastolic 74–107
[2022-05-31] MEDS: VANCOMYCIN LEVEL IV SCH (03:00)
[2022-05-31 06:18] LABS: VANCOMYCIN,RANDOM 15.7 UG/ML
[2022-05-31 07:09] LABS: ALBUMIN 2.1 G/DL (3.4-5.0); ANION GAP 10 (8-16); BLOOD UREA NITROGEN 38 MG/DL (7-18); BUN/CREATININE RATIO 7.6 (10.0-20.0); CALCIUM 8.4 MG/DL (8.5-10.1); CHLORIDE 104 MMOL/L (99-107); CREATININE 4.97 MG/DL (0.60-1.10); GLUCOSE 101 MG/DL (70-104); POTASSIUM 4.3 MMOL/L (3.5-5.1); SODIUM 141 MMOL/L (135-145); TOTAL CARBON DIOXIDE 27.2 MMOL/L (24-32); eGFR 11 ML/MIN
[2022-05-31] MEDS: NUT.TX.IMP.RENAL FXN,LAC-REDUC (Nepro) 237 ML VANILLA PO SCH ×3 (08:00→18:00)
[2022-05-31] MEDS: ascorbic acid 500mg tablet PO SCH (08:55)
[2022-05-31] MEDS: pantoprazole 40mg Tablet.DR PO SCH (08:55)
[2022-05-31] MEDS: losartan 50mg tablet PO SCH (08:55)
[2022-05-31] MEDS: amiodarone 200mg tablet PO SCH (08:55)
[2022-05-31] MEDS: multivitamins, therapeutics tablet PO SCH (08:55)
[2022-05-31] MEDS: cholecalciferol (vitamin D3) 1,000 unit (25mcg) tablet PO SCH (08:56)
[2022-05-31] MEDS: simethicone 125mg capsule PO SCH ×3 (08:56→20:28)
[2022-05-31] MEDS: docusate sod 100mg capsule PO SCH ×2 (08:56→20:29)
[2022-05-31] MEDS: metoprolol succinate 25mg (24-HOUR) SR. Tablet PO SCH (08:56)
[2022-05-31] MEDS ORDERED: gelatin sponge, absorbable (Gelfoam 12-7MM) sponge TP ONE (12:50)
[2022-05-31] MEDS ORDERED: fentaNYL/PF 50MCG/1 ML 2ML syringe ONE (12:50)
--- NOTE | 2022-05-31 17:59 | NUR ---
Today I oriented CEE Drew. I reviewed and I agree with the Physical Assessment conducted and charted by Viki with the exceptions noted in the physical assessment I charted. Addendum: 05/31/22 at 1800 by Alma Delia Arce RN Amended: Links added.
--- NOTE | 2022-05-31 18:15 | NUR ---
Patient in room ORTHO 4021. I have received report from Alma Delia MIKE and had the opportunity to ask questions and assume patient care.
--- NOTE | 2022-05-31 18:38 | NUR ---
Problems reprioritized. Patient report given, questions answered & plan of care reviewed with CEE Fontana.
[2022-05-31] MEDS: ROSUVASTATIN CALCIUM 5 MG TABLET PO SCH (20:27)
[2022-05-31 20:46] LABS: HEMATOCRIT 31.9 % (42.0-52.0); MEAN CORPUSCULAR HEMOGLOBIN 26.9 PG (27.0-31.0); MEAN CORPUSCULAR HGB CONC 31.4 g/dL (33.0-36.5); MEAN CORPUSCULAR VOLUME 85.8 FL (78-98); PLATELET COUNT 224 X10'3 (140-440); RED BLOOD COUNT 3.72 X10'6 (4.70-6.10); WHITE BLOOD COUNT 5.7 X10'3 (4.5-11.0)
[2022-06-01] VITALS (11 sets, daily range): BP systolic 124–149; BP diastolic 68–85
--- NOTE | 2022-06-01 06:19 | NUR ---
Patient in room ORTHO 4021. I have received report from Marizol MIKE and had the opportunity to ask questions and assume patient care.
--- NOTE | 2022-06-01 06:35 | NUR ---
Problems reprioritized. Patient report given, questions answered & plan of care reviewed with Alma Delia MIKE by Martha MIKE supervised by Marizol MIKE.
--- NOTE | 2022-06-01 06:36 | NUR ---
Agree with Martha MIKE's physical assessment and the medications on EMAR that were given to this pt.
[2022-06-01] MEDS ORDERED: heparin 1,000 units/ml 10ml inj HE ONE ×2 (08:00)
[2022-06-01] MEDS: metoprolol succinate 25mg (24-HOUR) SR. Tablet PO SCH (08:00)
[2022-06-01] MEDS ORDERED: albumin (human) 25% 100ml IV 100 ML IV PRN (08:00)
[2022-06-01] MEDS ORDERED: EPOETIN ALFA-EPBX 20,000 UNIT/ML 1 ML MDV IV ONE (08:00)
[2022-06-01] MEDS: losartan 50mg tablet PO SCH (08:00)
[2022-06-01] MEDS: amiodarone 200mg tablet PO SCH (08:09)
[2022-06-01] MEDS: pantoprazole 40mg Tablet.DR PO SCH (08:09)
[2022-06-01] MEDS: ascorbic acid 500mg tablet PO SCH (08:09)
[2022-06-01] MEDS: multivitamins, therapeutics tablet PO SCH (08:09)
[2022-06-01] MEDS: cholecalciferol (vitamin D3) 1,000 unit (25mcg) tablet PO SCH (08:10)
[2022-06-01] MEDS: aspirin 81mg tab.chew PO SCH (08:10)
[2022-06-01] MEDS: docusate sod 100mg capsule PO SCH ×2 (08:10→21:06)
[2022-06-01] MEDS: simethicone 125mg capsule PO SCH ×3 (08:10→21:06)
[2022-06-01] MEDS: NUT.TX.IMP.RENAL FXN,LAC-REDUC (Nepro) 237 ML VANILLA PO SCH ×3 (08:14→18:00)
--- NOTE | 2022-06-01 16:38 | NUR ---
Today I oriented CEE Drew. After review I agree with the Physical Assessment charted by Viki with the following changes: the landis cath was removed 05/31/22 and the patient walks with PT and is chairfast otherwise. Addendum: 06/01/22 at 1639 by Alma Delia Arce RN Amended: Links added.
--- NOTE | 2022-06-01 18:21 | NUR ---
Problems reprioritized. Patient report given, questions answered & plan of care reviewed with Sofi MIKE.
--- NOTE | 2022-06-01 18:28 | NUR ---
Patient in room ORTHO 4021. I have received report from CEE CHAN and had the opportunity to ask questions and assume patient care.
[2022-06-01 19:20] LABS: ATYPICAL PANCA <1:20 titer (Neg:<1:20); CYTOPLASMIC (C-ANCA) <1:20 titer (Neg:<1:20); PERINUCLEAR (P-ANCA) <1:20 titer (Neg:<1:20)
[2022-06-01] MEDS: ROSUVASTATIN CALCIUM 5 MG TABLET PO SCH (21:06)
[2022-06-02 02:00] VITALS: BP 123/88
[2022-06-02 06:00] VITALS: BP 124/71
--- NOTE | 2022-06-02 06:44 | NUR ---
Problems reprioritized. Patient report given, questions answered & plan of care reviewed with CEE Sy.
--- NOTE | 2022-06-02 06:53 | NUR ---
Patient in room ORTHO 4021. I have received report from Sofi and had the opportunity to ask questions and assume patient care.
[2022-06-02] MEDS: ascorbic acid 500mg tablet PO SCH (08:00)
[2022-06-02] MEDS: simethicone 125mg capsule PO SCH ×3 (08:00→20:29)
[2022-06-02] MEDS: NUT.TX.IMP.RENAL FXN,LAC-REDUC (Nepro) 237 ML VANILLA PO SCH ×3 (08:00→18:02)
[2022-06-02] MEDS: multivitamins, therapeutics tablet PO SCH (08:00)
[2022-06-02] MEDS: docusate sod 100mg capsule PO SCH ×2 (08:00→20:28)
[2022-06-02] MEDS: cholecalciferol (vitamin D3) 1,000 unit (25mcg) tablet PO SCH (08:00)
[2022-06-02 08:21] LABS: ANION GAP 7 (8-16); BLOOD UREA NITROGEN 34 MG/DL (7-18); CALCIUM 8.5 MG/DL (8.5-10.1); CHLORIDE 105 MMOL/L (99-107); CREATININE 4.83 MG/DL (0.60-1.10); GLUCOSE 97 MG/DL (70-104); POTASSIUM 4.4 MMOL/L (3.5-5.1); SODIUM 141 MMOL/L (135-145); TOTAL CARBON DIOXIDE 29.2 MMOL/L (24-32); eGFR 12 ML/MIN
[2022-06-02 10:00] VITALS: BP 120/76
[2022-06-02] MEDS: pantoprazole 40mg Tablet.DR PO SCH (10:05)
[2022-06-02] MEDS: aspirin 81mg tab.chew PO SCH (10:05)
[2022-06-02] MEDS: amiodarone 200mg tablet PO SCH (10:06)
[2022-06-02] MEDS: losartan 50mg tablet PO SCH (10:06)
[2022-06-02] MEDS: metoprolol succinate 25mg (24-HOUR) SR. Tablet PO SCH (10:06)
[2022-06-02 13:50] VITALS: BP 119/76
--- NOTE | 2022-06-02 17:42 | NUR ---
Reassessment: PO intake is poor, documented with mostly 25% PO intake of meals. Pt seen at bedside with family present. Pt states poor PO intake is r/t N/V. Per pt this has been an ongoing issue for a couple of weeks though SO states this has been ongoing since heart surgery at [facility] 02/16/2022. Noted pt was admitted to [facility] in 04/27-05/02 and pt was eating well with no documented N/V. Per EMR pt with 25% PO intake of starch only for lunch today however pt reports consuming ~75% of chicken prior to getting an upset stomach. Food preferences were obtained and d/w dietary, see below. Pt states he dislikes the Nepro however per EMR pt with 100% PO intake of ONS at two meals today. RD encouraged PO intake with emphasis on protein in view of HD and discussed alternative options such as NGT placement for EN if PO intake does not improve. Pt provided with RD contact information and encouraged to reach out if needed. LBM 05/31 per EMR. Will continue to follow closely. Recommendations: 1. Continue regular diet given poor PO intake 2. Nepro TIDWM; discontinue if pt refuses 3. [place] food preferences: yogurt WB, gelatin WL, crackers and extra butter TID; pt likes soup; No coffee, tea, gravy, or rice 4. Encourage PO intake 5. Routine Vitamin C, Vitamin D3, and MVI per MD 6. Routine bowel regimen with antiflatulent and PPI per physician 7. Routine serum Phos and Phos binder with meals if PO intake improves per physician discretion given HD 8. Scaled weights with HD Addendum: 06/02/22 at [address] Amended: Links added.
[2022-06-02 18:00] VITALS: BP 113/70
--- NOTE | 2022-06-02 18:30 | NUR ---
Patient in room ORTHO 4021. I have received report from CEE Sy and had the opportunity to ask questions and assume patient care.
--- NOTE | 2022-06-02 18:40 | NUR ---
Problems reprioritized. Patient report given, questions answered & plan of care reviewed with Sofi.
[2022-06-02] MEDS: ROSUVASTATIN CALCIUM 5 MG TABLET PO SCH (20:29)
[2022-06-03 02:00] VITALS: BP 112/76
[2022-06-03 06:00] VITALS: BP 138/77
--- NOTE | 2022-06-03 06:36 | NUR ---
Problems reprioritized. Patient report given, questions answered & plan of care reviewed with SARAH BETH Zavala.
[2022-06-03] MEDS: pantoprazole 40mg Tablet.DR PO SCH (08:00)
[2022-06-03] MEDS: multivitamins, therapeutics tablet PO SCH (08:01)
[2022-06-03] MEDS: docusate sod 100mg capsule PO SCH ×2 (08:01→20:14)
[2022-06-03] MEDS: metoprolol succinate 25mg (24-HOUR) SR. Tablet PO SCH (08:01)
[2022-06-03] MEDS: simethicone 125mg capsule PO SCH ×3 (08:01→20:14)
[2022-06-03] MEDS: cholecalciferol (vitamin D3) 1,000 unit (25mcg) tablet PO SCH (08:01)
[2022-06-03] MEDS: aspirin 81mg tab.chew PO SCH (08:01)
[2022-06-03] MEDS: ascorbic acid 500mg tablet PO SCH (08:01)
[2022-06-03] MEDS: amiodarone 200mg tablet PO SCH (08:01)
[2022-06-03] MEDS: losartan 50mg tablet PO SCH (08:02)
[2022-06-03] MEDS: NUT.TX.IMP.RENAL FXN,LAC-REDUC (Nepro) 237 ML VANILLA PO SCH ×3 (08:02→18:05)
[2022-06-03 10:00] VITALS: BP 116/70
[2022-06-03 14:00] VITALS: BP 122/70
[2022-06-03 18:00] VITALS: BP 123/80
--- NOTE | 2022-06-03 18:21 | NUR ---
Problems reprioritized. Patient report given, questions answered & plan of care reviewed with Elva huggins.
--- NOTE | 2022-06-03 18:25 | NUR ---
Patient in room ORTHO 4021. I have received report from CEE Zavala and had the opportunity to ask questions and assume patient care. Patient resting on bed in no obvious distress, Ange MIKE and I will continue to monitor.
[2022-06-03] MEDS: ROSUVASTATIN CALCIUM 5 MG TABLET PO SCH (20:14)
[2022-06-03] MEDS: heparin, porcine 5000 units/ml vial SQ SCH (20:15)
[2022-06-03 22:00] VITALS: BP 125/68
[2022-06-04 02:00] VITALS: BP 128/70
[2022-06-04 06:00] VITALS: BP 119/68
[2022-06-04] MEDS: NUT.TX.IMP.RENAL FXN,LAC-REDUC (Nepro) 237 ML VANILLA PO SCH ×2 (08:00→21:30)
[2022-06-04] MEDS: losartan 50mg tablet PO SCH (08:00)
[2022-06-04] MEDS: amiodarone 200mg tablet PO SCH (08:00)
[2022-06-04] MEDS: metoprolol succinate 25mg (24-HOUR) SR. Tablet PO SCH (08:00)
[2022-06-04 09:28] LABS: HEMATOCRIT 32.7 % (42.0-52.0); HEMOGLOBIN 10.2 g/dl (14.0-17.9); MEAN CORPUSCULAR HEMOGLOBIN 27.3 PG (27.0-31.0); MEAN CORPUSCULAR HGB CONC 31.3 g/dL (33.0-36.5); MEAN PLATELET VOLUME 10.2 FL (7.4-10.4); PLATELET COUNT 266 X10'3 (140-440); RED BLOOD COUNT 3.76 X10'6 (4.70-6.10); RED CELL DISTRIBUTION WIDTH 22.9 % (11.5-14.5); WHITE BLOOD COUNT 7.4 X10'3 (4.5-11.0)
[2022-06-04] MEDS: pantoprazole 40mg Tablet.DR PO SCH (09:40)
[2022-06-04] MEDS: aspirin 81mg tab.chew PO SCH (09:41)
[2022-06-04] MEDS: ascorbic acid 500mg tablet PO SCH (09:42)
[2022-06-04 10:00] VITALS: BP 123/72
[2022-06-04] MEDS: multivitamins, therapeutics tablet PO SCH (11:00)
[2022-06-04] MEDS: docusate sod 100mg capsule PO SCH ×2 (11:00→21:30)
[2022-06-04] MEDS: cholecalciferol (vitamin D3) 1,000 unit (25mcg) tablet PO SCH (11:00)
[2022-06-04] MEDS: simethicone 125mg capsule PO SCH ×2 (11:00→21:30)
[2022-06-04] MEDS ORDERED: heparin 1,000unit/ml 10ml vial 10 ML IV ONE (11:50)
[2022-06-04] MEDS ORDERED: EPOETIN ALFA-EPBX 20,000 UNIT/ML 1 ML MDV IV ONE (11:50)
[2022-06-04] MEDS ORDERED: normal saline 1000ml 250 ML IV PRN (11:50)
[2022-06-04] MEDS ORDERED: heparin 1,000 units/ml 10ml inj HE ONE ×2 (11:55)
--- NOTE | 2022-06-04 17:11 | NUR ---
Primary RN not able to assist with patient care at this time. Was Paged to to help reel hooker patient to dialysis port as per policy and procedure. Ayaz customer support technician assisted. patient pleasant vS bp 131/92, hr 91, temp 97.7. Pt resting in bed.
[2022-06-04 18:00] VITALS: BP 109/69
--- NOTE | 2022-06-04 18:40 | NUR ---
Received report from Poppy Mcwilliams. Reviewed POC with nurse. Was informed patient is off floor for dialysis.
[2022-06-04] MEDS: ROSUVASTATIN CALCIUM 5 MG TABLET PO SCH (21:30)
[2022-06-04] MEDS: heparin, porcine 5000 units/ml vial SQ SCH (21:31)
[2022-06-04 22:00] VITALS: BP 115/74
--- NOTE | 2022-06-04 22:20 | NUR ---
Received patient back to his room from dialysis. Report from rim fire charger operator patient with stable VSS and 2.5 L removed. Pt requesting snack at this time r/t not eating while in dialysis. Call light within reach, will continue to monitor.
[2022-06-05 06:00] VITALS: BP 145/81
[2022-06-05] MEDS: NUT.TX.IMP.RENAL FXN,LAC-REDUC (Nepro) 237 ML VANILLA PO SCH ×2 (08:00→13:00)
[2022-06-05] MEDS: aspirin 81mg tab.chew PO SCH ×2 (09:21→09:29)
[2022-06-05] MEDS: ascorbic acid 500mg tablet PO SCH (09:21)
[2022-06-05] MEDS: cholecalciferol (vitamin D3) 1,000 unit (25mcg) tablet PO SCH (09:22)
[2022-06-05] MEDS: heparin, porcine 5000 units/ml vial SQ SCH (09:27)
[2022-06-05] MEDS: losartan 50mg tablet PO SCH (09:30)
[2022-06-05] MEDS: amiodarone 200mg tablet PO SCH (09:30)
[2022-06-05] MEDS: docusate sod 100mg capsule PO SCH ×2 (09:30→20:09)
--- NOTE | 2022-06-05 14:01 | NUR ---
F/u: Pt continues with poor PO intake. D/w RN 06/04 and nursing aid 06/05 recommendation to discontinue ONS as pt dislikes them and is either throwing them away or just refusing them per RN/aid reports. Also d/w RN and aid recommendation for NGT placement for EN given prolonged poor PO intake. Noted patient's last serum Phos was 8.1 mg/dL 05/25. D/w nursing aid recommendation for routine serum Phos lab. Per CM note pt discharging to [facility] tomorrow 06/06 with PU time of 0930. Will continue to follow closely. Recommendations: 1. Liberalize to regular diet given poor PO intake 2. Discontinue Nepro TIDWM-pt doesn't want ONS 3. [place] food preferences: yogurt WB, gelatin WL, crackers and extra butter TID; pt likes soup; No coffee, tea, gravy, or rice 4. Encourage PO intake 5. Routine Vitamin C, Vitamin D3, and MVI per MD 6. Routine bowel regimen with antiflatulent and PPI per physician 7. Routine serum Phos and Phos binder with meals if PO intake improves per physician discretion given HD 8. Scaled weights with HD Addendum: 06/05/22 at [address] Amended: Links added.
[2022-06-05 16:42] VITALS: BP 110/68
[2022-06-05] MEDS: simethicone 125mg capsule PO SCH ×3 (17:07→20:09)
[2022-06-05] MEDS: metoprolol succinate 25mg (24-HOUR) SR. Tablet PO SCH (17:07)
[2022-06-05] MEDS: multivitamins, therapeutics tablet PO SCH (17:09)
[2022-06-05] MEDS: pantoprazole 40mg Tablet.DR PO SCH (17:17)
[2022-06-05 18:00] VITALS: BP 116/92
--- NOTE | 2022-06-05 18:57 | NUR ---
Report given to Elva .
--- NOTE | 2022-06-05 19:21 | NUR ---
Spoke with MD Steiner for clarification regarding patient dialysis treatment for tomorrow with his tentative discharge. informed this nurse that he spoke with shelter case manager [place] that the patient would be receiving dialysis when he got to [facility] tomorrow. Pt also updated with this information.
[2022-06-05] MEDS: apixaban 2.5mg tablet PO SCH (20:09)
[2022-06-05] MEDS: ROSUVASTATIN CALCIUM 5 MG TABLET PO SCH (20:09)
[2022-06-05 22:00] VITALS: BP 133/77
--- NOTE | 2022-06-05 22:38 | NUR ---
Discussed with patient about no BM documented since 06/01 patient declined any further bowel care (Colace given with HS meds) related to him being transferred to [facility] tomorrow. Pt's request followed at this time. Will continue to monitor. Addendum: 06/05/22 at 2242 by Elva Andrew RN Correction last documented BM 05/31
[2022-06-06 07:31] VITALS: BP 130/84
[2022-06-06] MEDS: metoprolol succinate 25mg (24-HOUR) SR. Tablet PO SCH ×2 (08:00→08:50)
[2022-06-06] MEDS: aspirin 81mg tab.chew PO SCH (08:46)
[2022-06-06] MEDS: ascorbic acid 500mg tablet PO SCH (08:46)
[2022-06-06] MEDS: amiodarone 200mg tablet PO SCH (08:47)
[2022-06-06] MEDS: simethicone 125mg capsule PO SCH (08:47)
[2022-06-06] MEDS: docusate sod 100mg capsule PO SCH (08:47)
[2022-06-06] MEDS: multivitamins, therapeutics tablet PO SCH (08:47)
[2022-06-06] MEDS: cholecalciferol (vitamin D3) 1,000 unit (25mcg) tablet PO SCH (08:48)
[2022-06-06 08:49] VITALS: BP_SYST 130
[2022-06-06] MEDS: losartan 50mg tablet PO SCH (08:49)
[2022-06-06] MEDS: pantoprazole 40mg Tablet.DR PO SCH (08:50)
[2022-06-06] MEDS: apixaban 2.5mg tablet PO SCH (08:50)
--- NOTE | 2022-06-06 09:30 | NUR ---
RECEIVED REPORT THIS MORNING FROM BROWN MIKE AND ASSUMED CARE AT 0630. PT STABLE. PHYSICAL ASSESSMENT COMPLETED WITH NO CHANGES OF NOTE. REPORTED OFF TO AMBULANCE/EMR. PT LEFT VSS A/OX3 WITH ALL BELONGINGS INCLUDING HIS CPAP MACHINE CELL PHONE, AND ZIPPER SETTER CHAINSTITCH. WILL CALL REPORT TO [facility] RN
--- NOTE | 2022-06-06 12:24 | NUR ---
CALLED REPORT TO JANAK MIKE AT [facility]. LBM FOR PATIENT WAS ON 05/31. OFFERED PATIENT TO TAKE MEDICATION TO HELP ENCOURAGE BOWEL MOVEMENT, HOWEVER PATIENT DENIED STATING " I AM NOT GOING TO TAKE A LAXATIVE AND THEN GET STUCK IN A VEHICLE FOR [address] HOU[address], [address]" REPORTED THIS TO JANAK MIKE. LEFT JANAK WITH MY CONTACT NUMBER FOR ANY QUESTIONS RELATED TO PATIENTS PLAN OF CARE. EDUCATED THE PATIENT ON IMPORTANCE OF MAKING FOLLOW UP APPTS WITH WEIGHTS AND MEASURES SEALER AND AUDITING CONTROL CLERK WHEN HE GETS OUT OF REHAB HE HAS SOME NEW DIAGNOSIS OF CHF AND KIDNEY FAILURE.
== END 2022-06-06 09:57 | DRG 673 ==
LOC: ER 10:57 → ED HOLD 21:04 → ORTHO 4S 05-26 02:05
PROVIDERS: ADMIT Family Medicine; ATTEND Internal Medicine
PROC: 5A09357 Assistance with Respiratory Ventilation, Less than 24 Consecutive Hours, Continuous Positive Airway Pressure (ICD-10-PCS; 2022-05-26)
PROC: 0JH63XZ Insertion of Tunneled Vascular Access Device into Chest Subcutaneous Tissue and Fascia, Percutaneous Approach (ICD-10-PCS; 2022-05-28)
PROC: 02HV33Z Insertion of Infusion Device into Superior Vena Cava, Percutaneous Approach (ICD-10-PCS; 2022-05-28)
PROC: B548ZZA Ultrasonography of Superior Vena Cava, Guidance (ICD-10-PCS; 2022-05-28)
PROC: B5181ZA Fluoroscopy of Superior Vena Cava using Low Osmolar Contrast, Guidance (ICD-10-PCS; 2022-05-28)
PROC: 5A1D70Z Performance of Urinary Filtration, Intermittent, Less than 6 Hours Per Day (ICD-10-PCS; 2022-05-28)
PROC: 5A1D70Z Performance of Urinary Filtration, Intermittent, Less than 6 Hours Per Day (ICD-10-PCS; 2022-05-29)
PROC: 5A1D70Z Performance of Urinary Filtration, Intermittent, Less than 6 Hours Per Day (ICD-10-PCS; 2022-05-30)
PROC: 0TB13ZX Excision of Left Kidney, Percutaneous Approach, Diagnostic (ICD-10-PCS; principal; 2022-05-31)
PROC: 5A1D70Z Performance of Urinary Filtration, Intermittent, Less than 6 Hours Per Day (ICD-10-PCS; 2022-06-01)
PROC: 5A09357 Assistance with Respiratory Ventilation, Less than 24 Consecutive Hours, Continuous Positive Airway Pressure (ICD-10-PCS; 2022-06-04)
PROC: 5A1D70Z Performance of Urinary Filtration, Intermittent, Less than 6 Hours Per Day (ICD-10-PCS; 2022-06-04)
DX: N17.9 Acute kidney failure, unspecified (principal); I50.43 Acute on chronic combined systolic (congestive) and diastolic (congestive) heart failure; J96.01 Acute respiratory failure with hypoxia; I13.0 Hypertensive heart and chronic kidney disease with heart failure and stage 1 through stage 4 chronic kidney disease, or unspecified chronic kidney disease; E87.0 Hyperosmolality and hypernatremia; E87.20 Acidosis, unspecified; N18.4 Chronic kidney disease, stage 4 (severe); R31.29 Other microscopic hematuria; D64.9 Anemia, unspecified; E78.5 Hyperlipidemia, unspecified; E83.39 Other disorders of phosphorus metabolism; E87.5 Hyperkalemia; I48.0 Paroxysmal atrial fibrillation; R59.9 Enlarged lymph nodes, unspecified; N28.1 Cyst of kidney, acquired; M54.9 Dorsalgia, unspecified; R80.9 Proteinuria, unspecified; E88.09 Other disorders of plasma-protein metabolism, not elsewhere classified; M71.22 Synovial cyst of popliteal space [Baker], left knee; M71.21 Synovial cyst of popliteal space [Baker], right knee; I65.29 Occlusion and stenosis of unspecified carotid artery; G47.33 Obstructive sleep apnea (adult) (pediatric); I25.10 Atherosclerotic heart disease of native coronary artery without angina pectoris; I25.2 Old myocardial infarction; Z79.01 Long term (current) use of anticoagulants; Z79.82 Long term (current) use of aspirin; Z82.49 Family history of ischemic heart disease and other diseases of the circulatory system; Z87.891 Personal history of nicotine dependence; Z95.1 Presence of aortocoronary bypass graft; Z98.42 Cataract extraction status, left eye; Z98.41 Cataract extraction status, right eye; Z88.5 Allergy status to narcotic agent; Z79.899 Other long term (current) drug therapy
CPT/HCPCS: 36415; 36558; 50200; 71045; 76770; 76937; 77001; 77012; 80048; 80053; 80061; 80202; 80305; 81001; 82550; 82595; 82948; 83036; 83605; 83615; 83690; 83735; 83880; 84100; 84443; 85008; 85025; 85027; 85379; 85610; 85651; 85730; 86038; 86060; 86140; 86160; 86256; 86430; 86704; 86706; 87040; 87077; 87081; 87186; 87340; 88300; 88305; 88346; 88350; 93308; 93970; 93975; 94640; 94660; 94760; 96365; 97116; 97162; 97530; 99285; A4615; A4620; A6212; A6213; A6258; A6449; A7015; A9270; C1750; C1769; C1894; G0378; J0456; J0696; J1200; J1644; J1940; J2405; J3010; J3370; J3490; J7030; J7040; J7070; Q4081

== ENCOUNTER 2022-11-06 11:14 | Day surgery (SDC) | payer MEDICARE, OTHER ==
[2022-11-02 10:13] LABS: BASOPHILS # (AUTO) 0.1 X10'3 (0-0.2); BASOPHILS % (AUTO) 0.6 % (0-1); EOSINOPHILS # (AUTO) 0.2 X10'3 (0-0.9); EOSINOPHILS % (AUTO) 2.4 % (0-6); HEMATOCRIT 42.4 % (42.0-52.0); HEMOGLOBIN 13.2 g/dl (14.0-17.9); LYMPHOCYTES # (AUTO) 0.9 X10'3 (1.1-4.8); LYMPHOCYTES % (AUTO) 10.9 % (21-51); MEAN CORPUSCULAR HEMOGLOBIN 27.7 PG (27.0-31.0); MEAN CORPUSCULAR HGB CONC 31.1 g/dL (33.0-36.5); MEAN CORPUSCULAR VOLUME 89.3 FL (78-98); MEAN PLATELET VOLUME 10.8 FL (7.4-10.4); MONOCYTES # (AUTO) 0.5 X10'3 (0-0.9); MONOCYTES % (AUTO) 6.3 % (2-12); NEUTROPHILS # (AUTO) 6.4 X10'3 (1.8-7.7); NEUTROPHILS % (AUTO) 79.8 % (42-75); PLATELET COUNT 285 X10'3 (140-440); RED BLOOD COUNT 4.75 X10'6 (4.70-6.10); RED CELL DISTRIBUTION WIDTH 19.7 % (11.5-14.5)
[2022-11-02 10:26] LABS: APTT 38 SECONDS (22-32); INR 1.2 INR; PROTHROMBIN TIME 12.6 SECONDS (9.0-12.0)
[2022-11-02 10:29] LABS: ANION GAP 12 (8-16); BLOOD UREA NITROGEN 53 MG/DL (7-18); BUN/CREATININE RATIO 7.1 (10.0-20.0); CALCIUM 9.1 MG/DL (8.5-10.1); CHLORIDE 100 MMOL/L (99-107); CREATININE 7.49 MG/DL (0.60-1.10); GLUCOSE 100 MG/DL (70-104); POTASSIUM 3.9 MMOL/L (3.5-5.1); SODIUM 143 MMOL/L (135-145); TOTAL CARBON DIOXIDE 31.5 MMOL/L (24-32); eGFR 7 ML/MIN
[2022-11-02 10:48] LABS: ANISOCYTOSIS 2+; LARGE PLATELETS MODERATE; PLATELET ESTIMATE NORMAL
[2022-11-02 10:49] LABS: ELLIPTOCYTES 1+; POLYCHROMASIA FEW; SCHISTOCYTES FEW; TEAR DROP CELLS FEW
[~2022-11-06] VITALS: Ht 193 cm; Wt 92.0 kg
[2022-11-06] VITALS (13 sets, daily range): BP systolic 108–135; BP diastolic 67–86; PULSE 78–124; RESP 12–15; TEMP 98.2; O2SAT 92–100
[~2022-11-06 11:14] MED LIST changes: +AMI200T PO; +ASPI-920 PO; +DOCU-22 PO; -LISI10TA27 PO; +LOSA50TA64 PO; +METO25TA6 PO; +ROSU10TA28 PO
[2022-11-06] MEDS ORDERED: MIDAZolam 1mg/ml 10ml vial IV ONE (11:35)
[2022-11-06] MEDS ORDERED: normal saline 1000ml 1,000 ML IV SCH (11:35)
[2022-11-06] MEDS ORDERED: fentaNYL/PF 50MCG/1 ML 2ML syringe IV ONE (11:35)
[2022-11-06] MEDS ORDERED: APIX5TAB3 PO (11:37)
== END 2022-11-06 14:45 | disposition home or self-care (01) ==
LOC: SSTAY O 11:14
PROVIDERS: ATTEND Student in an Organized Health Care Education/Training Program
DX: I48.0 Paroxysmal atrial fibrillation (principal); D64.9 Anemia, unspecified; E78.5 Hyperlipidemia, unspecified; I25.10 Atherosclerotic heart disease of native coronary artery without angina pectoris; G47.10 Hypersomnia, unspecified; I13.2 Hypertensive heart and chronic kidney disease with heart failure and with stage 5 chronic kidney disease, or end stage renal disease; N18.6 End stage renal disease; I50.9 Heart failure, unspecified; I65.29 Occlusion and stenosis of unspecified carotid artery; I73.9 Peripheral vascular disease, unspecified; I25.2 Old myocardial infarction; I27.20 Pulmonary hypertension, unspecified; Z79.01 Long term (current) use of anticoagulants; Z79.899 Other long term (current) drug therapy; Z95.1 Presence of aortocoronary bypass graft; Z87.891 Personal history of nicotine dependence; Z99.2 Dependence on renal dialysis; Z88.5 Allergy status to narcotic agent
CPT/HCPCS: 36415; 80048; 85025; 85610; 85730; 92960; J2250; J3010; J7030; 85008; A4620

== ENCOUNTER 2023-04-15 15:57 | Inpatient (IN) | payer MEDICARE, OTHER, MEDICAID ==
[~2023-04-15] VITALS: Ht 193 cm; Wt 87.7 kg
[~2023-04-15 15:57] MED LIST changes: +APIX5TAB3 PO; -ASCO500C18 PO; -ASPI-920 PO; -DOCU-22 PO; -FERR-106 PO; -FURO40TA4 PO; -LOSA50TA64 PO; -METO25TA6 PO; -MULT-1219 PO; -ROSU10TA28 PO
[2023-04-15 18:46] LABS: EOSINOPHILS # (AUTO) 0.1 X10'3 (0-0.9); EOSINOPHILS % (AUTO) 1.1 % (0-6); MEAN CORPUSCULAR HGB CONC 31.8 g/dL (33.0-36.5); MONOCYTES # (AUTO) 0.5 X10'3 (0-0.9); MONOCYTES % (AUTO) 6.7 % (2-12); NEUTROPHILS # (AUTO) 5.9 X10'3 (1.8-7.7)
[2023-04-15 18:47] LABS: BASOPHILS # (AUTO) 0.1 X10'3 (0-0.2); BASOPHILS % (AUTO) 0.8 % (0-1); HEMATOCRIT 40.1 % (42.0-52.0); HEMOGLOBIN 12.8 g/dl (14.0-17.9); LYMPHOCYTES # (AUTO) 0.5 X10'3 (1.1-4.8); LYMPHOCYTES % (AUTO) 7.6 % (21-51); MEAN CORPUSCULAR HEMOGLOBIN 29.6 PG (27.0-31.0); MEAN PLATELET VOLUME 11.6 FL (7.4-10.4); NEUTROPHILS % (AUTO) 83.8 % (42-75); PLATELET COUNT 319 X10'3 (140-440); RED BLOOD COUNT 4.32 X10'6 (4.70-6.10); RED CELL DISTRIBUTION WIDTH 17.5 % (11.5-14.5)
[2023-04-15 19:18] LABS: ALBUMIN 2.9 G/DL (3.4-5.0); ANION GAP 13 (8-16); BLOOD UREA NITROGEN 61 MG/DL (7-18); BUN/CREATININE RATIO 8.7 (10.0-20.0); CALCIUM 8.6 MG/DL (8.5-10.1); CHLORIDE 103 MMOL/L (99-107); CREATININE 7.01 MG/DL (0.60-1.10); GLUCOSE 92 MG/DL (70-104); POTASSIUM 4.1 MMOL/L (3.5-5.1); SODIUM 146 MMOL/L (135-145); TOTAL CARBON DIOXIDE 30.2 MMOL/L (24-32); eCRCL 10 ML/MIN; eGFR 8 ML/MIN
[2023-04-15 19:43] LABS: PRO BRAIN NATRIURETIC PEPTIDE > 30000 PG/ML (0-450)
[2023-04-15] MEDS: furosemide 10 MG/1 ML 10ml inj IV ONE (19:59)
[2023-04-15 20:28] LABS: ANISOCYTOSIS 1+; PLATELET ESTIMATE NORMAL
[2023-04-15 20:29] LABS: ELLIPTOCYTES 1+; LARGE PLATELETS MODERATE; SCHISTOCYTES FEW
[2023-04-15] MEDS ORDERED: temazepam 15mg capsule PO PRN (21:00)
[2023-04-15] MEDS ORDERED: ondansetron/PF 4mg/2ml inj IV PRN (22:30)
[2023-04-15] MEDS ORDERED: bisacodyl 10mg suppository rectal RC PRN (22:30)
[2023-04-15] MEDS ORDERED: ondansetron 4mg rapidly disintigrating tab PO PRN (22:30)
[2023-04-15] MEDS ORDERED: magnesium hydroxide 30ml (MOM) UD suspension PO PRN (22:30)
[2023-04-15] MEDS ORDERED: mag hydrox/Alum hydrox/simeth 30ml oral suspension PO PRN (22:30)
[2023-04-15] MEDS ORDERED: acetaminophen 650mg rectal suppository RC PRN (22:30)
[2023-04-15] MEDS ORDERED: diphenhydrAMINE 25mg capsule PO PRN (22:30)
[2023-04-15] MEDS ORDERED: acetaminophen 325mg tablet PO PRN (22:30)
[2023-04-15] MEDS ORDERED: diphenhydrAMINE 50 mg/ml inj IV PRN (22:30)
[2023-04-15] MEDS ORDERED: ipratropium/albuterol 3ml nebule NEB PRN (22:35)
[2023-04-15 22:57] LABS: HEMOGLOBIN A1C 5.3 % (4.5-6.2)
[2023-04-15 22:59] LABS: MAGNESIUM 2.2 MG/DL (1.5-2.4); PHOSPHORUS 5.5 MG/DL (2.3-4.5)
[2023-04-15] MEDS ORDERED: CEPH500C82 PO (23:15)
[2023-04-15] MEDS ORDERED: PHO667C (23:16)
[2023-04-15] MEDS ORDERED: SACU1TAB PO (23:18)
[2023-04-15] MEDS ORDERED: CARV3.122 PO (23:18)
[2023-04-15] MEDS ORDERED: ROSU10TA28 PO (23:18)
[2023-04-15 23:53] LABS: APTT 30 SECONDS (22-32); D-DIMER 0.42 MG/L FEU (0-0.50); INR 1.1 INR; PROTHROMBIN TIME 11.8 SECONDS (9.0-12.0)
[2023-04-16] VITALS (7 sets, daily range): BP systolic 106–124; BP diastolic 70–81; PULSE 72–78; RESP 18–19; TEMP 96.8–97.6; O2SAT 93–99
[2023-04-16 06:51] LABS: EOSINOPHILS # (AUTO) 0.1 X10'3 (0-0.9); HEMOGLOBIN 11.9 g/dl (14.0-17.9); LYMPHOCYTES # (AUTO) 0.5 X10'3 (1.1-4.8); MEAN CORPUSCULAR HEMOGLOBIN 29.4 PG (27.0-31.0); MONOCYTES # (AUTO) 0.5 X10'3 (0-0.9); NEUTROPHILS # (AUTO) 4.8 X10'3 (1.8-7.7)
[2023-04-16 06:55] LABS: BASOPHILS % (AUTO) 0.8 % (0-1); EOSINOPHILS % (AUTO) 1.3 % (0-6); HEMATOCRIT 37.3 % (42.0-52.0); LYMPHOCYTES % (AUTO) 8.6 % (21-51); MEAN CORPUSCULAR HGB CONC 31.9 g/dL (33.0-36.5); MEAN CORPUSCULAR VOLUME 92.1 FL (78-98); MEAN PLATELET VOLUME 11.6 FL (7.4-10.4); MONOCYTES % (AUTO) 8.7 % (2-12); NEUTROPHILS % (AUTO) 80.6 % (42-75); PLATELET COUNT 293 X10'3 (140-440); RED BLOOD COUNT 4.05 X10'6 (4.70-6.10); RED CELL DISTRIBUTION WIDTH 17.6 % (11.5-14.5)
[2023-04-16 07:15] LABS: ALANINE AMINOTRANSFERASE 22 U/L (12-78); ALBUMIN 2.6 G/DL (3.4-5.0); ALBUMIN/GLOBULIN RATIO 0.7 (1.1-1.5); ALKALINE PHOSPHATASE 64 IU/L (46-116); ANION GAP 10 (8-16); ASPARTATE AMINO TRANSFERASE 21 U/L (10-37); BILIRUBIN,TOTAL 0.5 MG/DL (0.1-1.0); BLOOD UREA NITROGEN 72 MG/DL (7-18); BUN/CREATININE RATIO 9.5 (10.0-20.0); CALCIUM 8.1 MG/DL (8.5-10.1); CHLORIDE 105 MMOL/L (99-107); CHOLESTEROL 151 MG/DL (0-200); CREATININE 7.54 MG/DL (0.60-1.10); GLUCOSE 93 MG/DL (70-104); HDL CHOLESTEROL 38 MG/DL (35-60); LDL CHOLESTEROL 93 MG/DL (50-100); POTASSIUM 4.1 MMOL/L (3.5-5.1); SODIUM 146 MMOL/L (135-145); TOTAL CARBON DIOXIDE 31.1 MMOL/L (24-32); TOTAL PROTEIN 6.3 G/DL (6.4-8.2); TRIGLYCERIDES 61 MG/DL (20-135); eCRCL 10 ML/MIN; eGFR 7 ML/MIN
[2023-04-16] MEDS: docusate sod 100mg capsule PO SCH (08:00)
[2023-04-16] MEDS: dexamethasone 4mg/ml inj IV SCH (08:10)
[2023-04-16] MEDS: pantoprazole 40mg Tablet.DR PO SCH (08:19)
[2023-04-16] MEDS: CefTRIAXone/D5W-Rocephin 1gm 50 ML IV SCH (08:30)
[2023-04-16] MEDS: apixaban 5mg tablet PO SCH (09:17)
[2023-04-16] MEDS: carVEDilol 3.125mg tablet PO SCH (09:17)
[2023-04-16] MEDS: atorvastatin 20mg tablet PO SCH (09:18)
[2023-04-16] MEDS: amiodarone 200mg tablet PO SCH (09:18)
[2023-04-16] MEDS: azithromycin/NS 500mg/250ml 250 ML IV SCH (09:19)
[2023-04-16] MEDS: heparin 1,000unit/ml 10ml vial 10 ML IV ONE (09:20)
[2023-04-16] MEDS: furosemide 20 MG/2 ML vial IV SCH (09:27)
[2023-04-16 10:52] LABS: C-REACTIVE PROTEIN 6.49 MG/DL (0.0-0.5)
[2023-04-16] MEDS: heparin 1,000 units/ml 10ml inj HE ONE ×2 (12:12)
[2023-04-16] MEDS: heparin 1,000 units/ml 10ml inj IV ONE (16:05)
[2023-04-16] MEDS: sacubitril/valsartan 24mg-26mg tablet PO SCH (20:23)
[2023-04-17] VITALS (17 sets, daily range): BP systolic 96–114; BP diastolic 59–73; PULSE 67–81; RESP 15–22; TEMP 96.8–98.8; O2SAT 97–100
[2023-04-17 07:10] LABS: BASOPHILS % (AUTO) 0.3 % (0-1); EOSINOPHILS % (AUTO) 0 % (0-6); LYMPHOCYTES # (AUTO) 0.3 X10'3 (1.1-4.8); MEAN CORPUSCULAR HGB CONC 31.6 g/dL (33.0-36.5)
[2023-04-17 07:12] LABS: HEMATOCRIT 34.7 % (42.0-52.0); LYMPHOCYTES % (AUTO) 4.9 % (21-51); MEAN CORPUSCULAR HEMOGLOBIN 29.2 PG (27.0-31.0); MEAN CORPUSCULAR VOLUME 92.4 FL (78-98); MEAN PLATELET VOLUME 11.3 FL (7.4-10.4); MONOCYTES # (AUTO) 0.3 X10'3 (0-0.9); MONOCYTES % (AUTO) 4.1 % (2-12); NEUTROPHILS # (AUTO) 5.6 X10'3 (1.8-7.7); NEUTROPHILS % (AUTO) 90.7 % (42-75); PLATELET COUNT 265 X10'3 (140-440); RED BLOOD COUNT 3.76 X10'6 (4.70-6.10); RED CELL DISTRIBUTION WIDTH 17.1 % (11.5-14.5); WHITE BLOOD COUNT 6.2 X10'3 (4.5-11.0)
[2023-04-17 07:21] LABS: D-DIMER 1.21 MG/L FEU (0-0.50)
[2023-04-17 07:38] LABS: ALANINE AMINOTRANSFERASE 19 U/L (12-78); ALBUMIN 2.6 G/DL (3.4-5.0); ALBUMIN/GLOBULIN RATIO 0.6 (1.1-1.5); ALKALINE PHOSPHATASE 64 IU/L (46-116); ANION GAP 13 (8-16); ASPARTATE AMINO TRANSFERASE 13 U/L (10-37); BILIRUBIN,TOTAL 0.4 MG/DL (0.1-1.0); BLOOD UREA NITROGEN 82 MG/DL (7-18); BUN/CREATININE RATIO 9.6 (10.0-20.0); C-REACTIVE PROTEIN 4.96 MG/DL (0.0-0.5); CALCIUM 7.8 MG/DL (8.5-10.1); CHLORIDE 103 MMOL/L (99-107); CREATININE 8.51 MG/DL (0.60-1.10); GLUCOSE 125 MG/DL (70-104); LACTATE DEHYDROGENASE 334 U/L (85-227); POTASSIUM 4.8 MMOL/L (3.5-5.1); SODIUM 145 MMOL/L (135-145); TOTAL CARBON DIOXIDE 28.9 MMOL/L (24-32); TOTAL PROTEIN 6.7 G/DL (6.4-8.2); eCRCL 9 ML/MIN; eGFR 6 ML/MIN
[2023-04-17 08:22] LABS: ANISOCYTOSIS 1+; ELLIPTOCYTES FEW; GIANT PLATELET FEW; LARGE PLATELETS MODERATE; PLATELET ESTIMATE NORMAL; TOTAL CELLS COUNTED 100
[2023-04-17 08:23] LABS: BURR CELLS FEW; TEAR DROP CELLS FEW
[2023-04-17] MEDS: aspirin 81mg tab.chew PO SCH (08:30)
[2023-04-17] MEDS: REMDESIVIR INJ (loading dose) 200 MG in normal saline 100ml IV soln 100 ML IV ONE (12:35)
[2023-04-18] VITALS (11 sets, daily range): BP systolic 104–113; BP diastolic 67–79; PULSE 72–83; RESP 14–29; TEMP 97.5–98.2; O2SAT 95–99
[2023-04-18 08:07] LABS: LYMPHOCYTES # (AUTO) 0.4 X10'3 (1.1-4.8); RED BLOOD COUNT 3.94 X10'6 (4.70-6.10)
[2023-04-18 08:10] LABS: BASOPHILS % (AUTO) 0.3 % (0-1); EOSINOPHILS % (AUTO) 0.1 % (0-6); HEMATOCRIT 36.2 % (42.0-52.0); HEMOGLOBIN 11.5 g/dl (14.0-17.9); LYMPHOCYTES % (AUTO) 5.4 % (21-51); MEAN CORPUSCULAR HEMOGLOBIN 29.2 PG (27.0-31.0); MEAN CORPUSCULAR HGB CONC 31.8 g/dL (33.0-36.5); MEAN CORPUSCULAR VOLUME 91.9 FL (78-98); MEAN PLATELET VOLUME 10.2 FL (7.4-10.4); MONOCYTES # (AUTO) 0.3 X10'3 (0-0.9); MONOCYTES % (AUTO) 4.8 % (2-12); NEUTROPHILS # (AUTO) 6.1 X10'3 (1.8-7.7); NEUTROPHILS % (AUTO) 89.4 % (42-75); PLATELET COUNT 252 X10'3 (140-440); RED CELL DISTRIBUTION WIDTH 17.6 % (11.5-14.5); WHITE BLOOD COUNT 6.8 X10'3 (4.5-11.0)
[2023-04-18] MEDS: REMDESIVIR 100MG/NS 100ML ADV 100 ML IV SCH (08:11)
[2023-04-18 08:35] LABS: ALANINE AMINOTRANSFERASE 18 U/L (12-78); ALBUMIN 2.6 G/DL (3.4-5.0); ALBUMIN/GLOBULIN RATIO 0.7 (1.1-1.5); ALKALINE PHOSPHATASE 65 IU/L (46-116); ANION GAP 13 (8-16); ASPARTATE AMINO TRANSFERASE 13 U/L (10-37); BILIRUBIN,TOTAL 0.3 MG/DL (0.1-1.0); BLOOD UREA NITROGEN 55 MG/DL (7-18); BUN/CREATININE RATIO 8.5 (10.0-20.0); C-REACTIVE PROTEIN 2.84 MG/DL (0.0-0.5); CALCIUM 7.9 MG/DL (8.5-10.1); CHLORIDE 104 MMOL/L (99-107); CREATININE 6.48 MG/DL (0.60-1.10); GLUCOSE 131 MG/DL (70-104); LACTATE DEHYDROGENASE 311 U/L (85-227); POTASSIUM 4.6 MMOL/L (3.5-5.1); SODIUM 143 MMOL/L (135-145); TOTAL CARBON DIOXIDE 26.3 MMOL/L (24-32); TOTAL PROTEIN 6.1 G/DL (6.4-8.2); eCRCL 11 ML/MIN; eGFR 8 ML/MIN
[2023-04-18 08:58] LABS: GIANT PLATELET FEW; TOTAL CELLS COUNTED 100
[2023-04-18 09:01] LABS: ELLIPTOCYTES FEW; HYPOCHROMASIA 1+
[2023-04-18 09:02] LABS: ANISOCYTOSIS 1+; SCHISTOCYTES FEW; STOMATOCYTES FEW
[2023-04-18 09:03] LABS: TEAR DROP CELLS FEW
[2023-04-18 09:04] LABS: BURR CELLS FEW
[2023-04-18 09:05] LABS: PLATELET ESTIMATE NORMAL
[2023-04-18 09:08] LABS: LARGE PLATELETS MODERATE
[2023-04-19] VITALS (15 sets, daily range): BP systolic 101–116; BP diastolic 53–76; PULSE 55–78; RESP 16–24; TEMP 97.5–98.2; O2SAT 94–98
[2023-04-19] MEDS: acetaminophen 325mg tablet PO PRN (03:52)
[2023-04-19 05:59] LABS: HBSAG SCREEN Negative (Negative)
[2023-04-19 06:41] LABS: MEAN CORPUSCULAR HEMOGLOBIN 29.2 PG (27.0-31.0); MONOCYTES # (AUTO) 0.5 X10'3 (0-0.9); NEUTROPHILS # (AUTO) 6.7 X10'3 (1.8-7.7)
[2023-04-19 06:42] LABS: BASOPHILS % (AUTO) 0.2 % (0-1); EOSINOPHILS % (AUTO) 0 % (0-6); HEMATOCRIT 37.4 % (42.0-52.0); HEMOGLOBIN 11.9 g/dl (14.0-17.9); LYMPHOCYTES # (AUTO) 0.6 X10'3 (1.1-4.8); LYMPHOCYTES % (AUTO) 7.6 % (21-51); MEAN CORPUSCULAR HGB CONC 31.9 g/dL (33.0-36.5); MEAN CORPUSCULAR VOLUME 91.5 FL (78-98); MEAN PLATELET VOLUME 11.9 FL (7.4-10.4); MONOCYTES % (AUTO) 6.5 % (2-12); NEUTROPHILS % (AUTO) 85.7 % (42-75); PLATELET COUNT 331 X10'3 (140-440); RED BLOOD COUNT 4.09 X10'6 (4.70-6.10); RED CELL DISTRIBUTION WIDTH 17.6 % (11.5-14.5); WHITE BLOOD COUNT 7.8 X10'3 (4.5-11.0)
[2023-04-19 06:45] LABS: D-DIMER 1.56 MG/L FEU (0-0.50)
[2023-04-19 07:02] LABS: ALANINE AMINOTRANSFERASE 17 U/L (12-78); ALBUMIN 2.6 G/DL (3.4-5.0); ALBUMIN/GLOBULIN RATIO 0.8 (1.1-1.5); ALKALINE PHOSPHATASE 61 IU/L (46-116); ANION GAP 13 (8-16); ASPARTATE AMINO TRANSFERASE 14 U/L (10-37); BILIRUBIN,TOTAL 0.5 MG/DL (0.1-1.0); BLOOD UREA NITROGEN 78 MG/DL (7-18); BUN/CREATININE RATIO 10.1 (10.0-20.0); C-REACTIVE PROTEIN 2.14 MG/DL (0.0-0.5); CALCIUM 7.8 MG/DL (8.5-10.1); CHLORIDE 102 MMOL/L (99-107); CREATININE 7.74 MG/DL (0.60-1.10); GLUCOSE 90 MG/DL (70-104); LACTATE DEHYDROGENASE 366 U/L (85-227); POTASSIUM 4.8 MMOL/L (3.5-5.1); SODIUM 142 MMOL/L (135-145); TOTAL CARBON DIOXIDE 27.4 MMOL/L (24-32); eCRCL 10 ML/MIN; eGFR 7 ML/MIN
[2023-04-19] MEDS: dexamethasone 4mg/ml inj IV SCH (07:34)
[2023-04-19] MEDS ORDERED: albumin (human) 25% 100ml IV 100 ML IV PRN (09:05)
[2023-04-19] MEDS: heparin 1,000 units/ml 10ml inj HE ONE ×2 (12:02→12:03)
[2023-04-19] MEDS ORDERED: DEC4T PO (12:21)
== END 2023-04-19 16:55 | disposition home health service (06) | DRG 177 ==
LOC: ER 15:58 → ED HOLD 22:35 → PCU 3S 04-16 06:03
PROVIDERS: ADMIT Family Medicine; ATTEND Family Medicine
PROC: 5A1D70Z Performance of Urinary Filtration, Intermittent, Less than 6 Hours Per Day (ICD-10-PCS; principal; 2023-04-17)
PROC: XW033E5 Introduction of Remdesivir Anti-infective into Peripheral Vein, Percutaneous Approach, New Technology Group 5 (ICD-10-PCS; 2023-04-17)
PROC: 5A1D70Z Performance of Urinary Filtration, Intermittent, Less than 6 Hours Per Day (ICD-10-PCS; 2023-04-19)
DX: U07.1 COVID-19 (principal); I21.A1 Myocardial infarction type 2; J12.82 Pneumonia due to coronavirus disease 2019; I50.23 Acute on chronic systolic (congestive) heart failure; N18.6 End stage renal disease; J44.0 Chronic obstructive pulmonary disease with (acute) lower respiratory infection; E87.0 Hyperosmolality and hypernatremia; E88.09 Other disorders of plasma-protein metabolism, not elsewhere classified; D64.9 Anemia, unspecified; I48.0 Paroxysmal atrial fibrillation; I27.20 Pulmonary hypertension, unspecified; E78.5 Hyperlipidemia, unspecified; I45.10 Unspecified right bundle-branch block; N40.0 Benign prostatic hyperplasia without lower urinary tract symptoms; I25.10 Atherosclerotic heart disease of native coronary artery without angina pectoris; I25.5 Ischemic cardiomyopathy; Z95.1 Presence of aortocoronary bypass graft; Z99.2 Dependence on renal dialysis; Z79.899 Other long term (current) drug therapy; I25.2 Old myocardial infarction; Z79.01 Long term (current) use of anticoagulants; Z82.49 Family history of ischemic heart disease and other diseases of the circulatory system; Z88.6 Allergy status to analgesic agent
CPT/HCPCS: 36415; 71045; 80048; 80053; 80061; 83036; 83605; 83615; 83735; 83880; 84100; 84145; 84484; 85007; 85008; 85025; 85379; 85610; 85730; 86140; 87040; 87340; 87502; 87503; 87811; 93005; 93306; 94760; 97110; 97161; 97530; 97535; 99285; A4615; E1594; G0257; G0378; J0456; J0696; J1100; J1644; J1940; J3490; J7030; J7040

== ENCOUNTER 2024-01-20 10:07 | Inpatient (IN) | payer MEDICARE, OTHER, MEDICAID ==
[2024-01-20] VITALS (21 sets, daily range): BP systolic 80–109; BP diastolic 47–71; PULSE 72–90; RESP 17–26; TEMP 97.5; O2SAT 88–100
[~2024-01-20] VITALS: Ht 190.5 cm; Wt 69.3 kg
[~2024-01-20 10:07] MED LIST changes: +CARV3.122 PO; -CHOL20002 PO; +PHO667C PO; +ROSU10TA72 PO; +SACU1TAB PO
[2024-01-20 11:22] LABS: ALANINE AMINOTRANSFERASE 28 U/L (12-78); ALBUMIN 3.3 G/DL (3.4-5.0); ALBUMIN/GLOBULIN RATIO 0.9 (1.1-1.5); ALKALINE PHOSPHATASE 81 IU/L (46-116); ANION GAP 11 (8-16); ASPARTATE AMINO TRANSFERASE 23 U/L (10-37); BILIRUBIN,TOTAL 0.7 MG/DL (0.1-1.0); BLOOD UREA NITROGEN 96 MG/DL (7-18); CALCIUM 8.9 MG/DL (8.5-10.1); CHLORIDE 102 MMOL/L (99-107); CREATININE 8.71 MG/DL (0.60-1.10); GLUCOSE 129 MG/DL (70-104); SODIUM 142 MMOL/L (135-145); TOTAL CARBON DIOXIDE 28.6 MMOL/L (24-32); TOTAL PROTEIN 6.9 G/DL (6.4-8.2); eCRCL 7 ML/MIN; eGFR 6 ML/MIN
[2024-01-20 11:30] LABS: POTASSIUM 6.7 MMOL/L (3.5-5.1)
[2024-01-20] MEDS ORDERED: PATIROMER CALCIUM SORBITEX 8.4 GM POWD.PACK PO ONE (11:35)
[2024-01-20 11:53] LABS: PRO BRAIN NATRIURETIC PEPTIDE > 30000 PG/ML (0-450)
[2024-01-20] MEDS: sodium polystyrene sulfonate 15gm/60ml oral suspension PO ONE (12:04)
[2024-01-20] MEDS: albuterol 2.5 MG/3 ML nebule CONTNEB PRN (12:16)
[2024-01-20] MEDS ORDERED: ondansetron/PF 4mg/2ml inj IV PRN (12:20)
[2024-01-20] MEDS ORDERED: acetaminophen 325mg tablet PO PRN ×2 (12:20)
[2024-01-20] MEDS ORDERED: EPOETIN ALFA-EPBX 20,000 UNIT/ML 1 ML MDV IV ONE (12:20)
[2024-01-20] MEDS ORDERED: magnesium hydroxide 30ml (MOM) UD suspension PO PRN (12:20)
[2024-01-20] MEDS ORDERED: morphine 4 MG/ML inj SYRINge IV PRN (12:20)
[2024-01-20 12:28] LABS: BASOPHILS # (AUTO) 0.1 X10'3 (0-0.2); EOSINOPHILS # (AUTO) 0.1 X10'3 (0-0.9); EOSINOPHILS % (AUTO) 1.3 % (0-6); LYMPHOCYTES # (AUTO) 0.5 X10'3 (1.1-4.8); MONOCYTES # (AUTO) 0.7 X10'3 (0-0.9); NEUTROPHILS # (AUTO) 10.2 X10'3 (1.8-7.7)
[2024-01-20 12:29] LABS: BASOPHILS % (AUTO) 0.7 % (0-1); HEMOGLOBIN 11.8 g/dl (14.0-17.9); LYMPHOCYTES % (AUTO) 4.4 % (21-51); MEAN CORPUSCULAR HEMOGLOBIN 31.1 PG (27.0-31.0); MEAN CORPUSCULAR HGB CONC 31.9 g/dL (33.0-36.5); MEAN CORPUSCULAR VOLUME 97.5 FL (78-98); MEAN PLATELET VOLUME 12.2 FL (7.4-10.4); MONOCYTES % (AUTO) 6.1 % (2-12); NEUTROPHILS % (AUTO) 87.5 % (42-75); RED CELL DISTRIBUTION WIDTH 17.2 % (11.5-14.5)
[2024-01-20 12:52] LABS: PLATELET COUNT 221 X10'3 (140-440); WHITE BLOOD COUNT 12.7 X10'3 (4.5-11.0)
[2024-01-20 12:53] LABS: ANISOCYTOSIS 1+; LARGE PLATELETS MODERATE; PLATELET ESTIMATE NORMAL
[2024-01-20] MEDS: heparin 1,000unit/ml 10ml vial 10 ML IV ONE (15:26)
[2024-01-20] MEDS ORDERED: APIX2.5T PO (15:32)
[2024-01-20] MEDS: heparin 1,000 units/ml 10ml inj IV ONE (15:39)
[2024-01-20] MEDS: heparin, porcine 5000 units/ml vial SQ SCH (15:57)
[2024-01-20] MEDS: diphenhydrAMINE 25mg capsule PO PRN (15:57)
[2024-01-20] MEDS: albumin (human) 25% 100ml IV 100 ML IV PRN (16:54)
[2024-01-20] MEDS: heparin 25,000 UNIT/250ml bag 250 ML IV PRN (17:25)
[2024-01-20] MEDS: heparin 10,000 units/1 ML INJ IV ONE (17:27)
[2024-01-20 17:36] LABS: INR 1.3 INR; PROTHROMBIN TIME 12.9 SECONDS (9.0-12.0)
[2024-01-20] MEDS: MESSAGE TO NURSING IV ONE (17:39)
[2024-01-20] MEDS: famotidine 20mg tablet PO SCH (20:54)
[2024-01-21] VITALS (18 sets, daily range): BP systolic 76–109; BP diastolic 52–77; PULSE 68–98; RESP 14–27; O2SAT 91–100
[2024-01-21] MEDS: heparin 10,000 units/1 ML INJ IV PRN (01:39)
[2024-01-21] MEDS: MESSAGE TO NURSING IV ONE ×4 (02:00→22:45)
[2024-01-21 06:14] LABS: APTT 54 SECONDS (22-32)
[2024-01-21 06:16] LABS: EOSINOPHILS # (AUTO) 0.1 X10'3 (0-0.9); MONOCYTES # (AUTO) 0.4 X10'3 (0-0.9)
[2024-01-21 06:19] LABS: BASOPHILS # (AUTO) 0.1 X10'3 (0-0.2); EOSINOPHILS % (AUTO) 1.1 % (0-6); HEMATOCRIT 32.2 % (42.0-52.0); HEMOGLOBIN 10.4 g/dl (14.0-17.9); LYMPHOCYTES # (AUTO) 0.5 X10'3 (1.1-4.8); LYMPHOCYTES % (AUTO) 7.5 % (21-51); MEAN CORPUSCULAR HEMOGLOBIN 31.3 PG (27.0-31.0); MEAN CORPUSCULAR HGB CONC 32.3 g/dL (33.0-36.5); MEAN CORPUSCULAR VOLUME 96.9 FL (78-98); MEAN PLATELET VOLUME 11.8 FL (7.4-10.4); MONOCYTES % (AUTO) 5.4 % (2-12); NEUTROPHILS # (AUTO) 5.9 X10'3 (1.8-7.7); PLATELET COUNT 219 X10'3 (140-440); RED BLOOD COUNT 3.32 X10'6 (4.70-6.10); RED CELL DISTRIBUTION WIDTH 16.3 % (11.5-14.5)
[2024-01-21 06:22] LABS: ALBUMIN 2.9 G/DL (3.4-5.0); ANION GAP 13 (8-16); BLOOD UREA NITROGEN 87 MG/DL (7-18); BUN/CREATININE RATIO 10.1 (10.0-20.0); CALCIUM 8.1 MG/DL (8.5-10.1); CHLORIDE 100 MMOL/L (99-107); CREATININE 8.65 MG/DL (0.60-1.10); GLUCOSE 90 MG/DL (70-104); MAGNESIUM 2.3 MG/DL (1.5-2.4); PHOSPHORUS 7.9 MG/DL (2.3-4.5); POTASSIUM 4.5 MMOL/L (3.5-5.1); SODIUM 142 MMOL/L (135-145); TOTAL CARBON DIOXIDE 28.6 MMOL/L (24-32); eCRCL 7 ML/MIN; eGFR 6 ML/MIN
[2024-01-21] MEDS: amiodarone 200mg tablet PO SCH ×2 (08:14→21:10)
[2024-01-21] MEDS ORDERED: EPOETIN ALFA-EPBX 20,000 UNIT/ML 1 ML MDV IV ONE (08:40)
[2024-01-21] MEDS: metoprolol succinate 25mg (24-HOUR) SR. Tablet PO SCH (09:15)
[2024-01-21] MEDS: amiodarone 150mg/dext, iso-os 100 ML IV ONE (09:27)
[2024-01-21] MEDS: amiodarone/D5 360MG/200ML BAG 200 ML IV SCH (09:31)
[2024-01-21] MEDS: morphine 2 MG/ML inj. syringe IV PRN (10:26)
[2024-01-21] MEDS: calcium acetate 667mg (PhosLO) capsule PO SCH (13:00)
[2024-01-21 22:19] LABS: APTT 58 SECONDS (22-32)
[2024-01-22] VITALS (26 sets, daily range): BP systolic 86–108; BP diastolic 51–78; PULSE 68–96; RESP 14–25; TEMP 97.1–98.1; O2SAT 95–100
[2024-01-22 04:39] LABS: BASOPHILS # (AUTO) 0.1 X10'3 (0-0.2); LYMPHOCYTES # (AUTO) 0.4 X10'3 (1.1-4.8); LYMPHOCYTES % (AUTO) 2.6 % (21-51)
[2024-01-22 04:40] LABS: BASOPHILS % (AUTO) 0.6 % (0-1); EOSINOPHILS % (AUTO) 0.3 % (0-6); HEMATOCRIT 34.4 % (42.0-52.0); MEAN CORPUSCULAR VOLUME 96.6 FL (78-98); MEAN PLATELET VOLUME 12.2 FL (7.4-10.4); MONOCYTES # (AUTO) 0.6 X10'3 (0-0.9); MONOCYTES % (AUTO) 4.5 % (2-12); NEUTROPHILS # (AUTO) 13.2 X10'3 (1.8-7.7); PLATELET COUNT 251 X10'3 (140-440); RED BLOOD COUNT 3.56 X10'6 (4.70-6.10); RED CELL DISTRIBUTION WIDTH 16.5 % (11.5-14.5); WHITE BLOOD COUNT 14.4 X10'3 (4.5-11.0)
[2024-01-22 04:51] LABS: APTT 37 SECONDS (22-32)
[2024-01-22 04:56] LABS: ANISOCYTOSIS 1+; ELLIPTOCYTES FEW; LARGE PLATELETS FEW; PLATELET ESTIMATE NORMAL
[2024-01-22 04:58] LABS: ALBUMIN 2.7 G/DL (3.4-5.0); ANION GAP 16 (8-16); BLOOD UREA NITROGEN 96 MG/DL (7-18); BUN/CREATININE RATIO 10.3 (10.0-20.0); CALCIUM 8.5 MG/DL (8.5-10.1); CHLORIDE 100 MMOL/L (99-107); CREATININE 9.29 MG/DL (0.60-1.10); GLUCOSE 91 MG/DL (70-104); MAGNESIUM 2.2 MG/DL (1.5-2.4); POTASSIUM 5.2 MMOL/L (3.5-5.1); SODIUM 140 MMOL/L (135-145); TOTAL CARBON DIOXIDE 24.5 MMOL/L (24-32); eCRCL 6 ML/MIN; eGFR 5 ML/MIN
[2024-01-22] MEDS: MESSAGE TO NURSING IV ONE ×3 (05:42→16:13)
[2024-01-22] MEDS: famotidine 20mg tablet PO SCH ×2 (07:31→08:00)
[2024-01-22] MEDS: heparin 1,000 units/ml 10ml inj HE ONE (08:20)
[2024-01-22] MEDS: heparin 1,000 units/ml 10ml inj IV ONE (08:21)
[2024-01-22] MEDS: heparin 1,000unit/ml 10ml vial 10 ML IV ONE (08:22)
[2024-01-22] MEDS: amiodarone 150mg/dext, iso-os 100 ML IV ONE (12:28)
[2024-01-22] MEDS ORDERED: fentaNYL/PF 50MCG/1 ML 2ML syringe ONE (16:03)
[2024-01-22] MEDS ORDERED: iohexol 350MG/ML 100ml bottle IV ONE (16:03)
[2024-01-22] MEDS ORDERED: midazolam 1 mg/ML 2ml injection ONE (16:03)
[2024-01-22] MEDS ORDERED: LIDOcaine 1% 30ml preserv. free vial ONE (16:06)
[2024-01-23] VITALS (8 sets, daily range): BP systolic 96–104; BP diastolic 64–71; PULSE 68–85; RESP 16–23; TEMP 97.4–98.5; O2SAT 95–99
[2024-01-23 05:23] LABS: HBSAG SCREEN Negative (Negative); HEP B SURF AB Non Reactive (.)
[2024-01-23 07:29] LABS: HEMOGLOBIN 10.9 g/dl (14.0-17.9); MONOCYTES # (AUTO) 0.4 X10'3 (0-0.9)
[2024-01-23 07:31] LABS: BASOPHILS % (AUTO) 0.5 % (0-1); EOSINOPHILS % (AUTO) 0.1 % (0-6); HEMATOCRIT 33.7 % (42.0-52.0); LYMPHOCYTES # (AUTO) 0.3 X10'3 (1.1-4.8); LYMPHOCYTES % (AUTO) 4.3 % (21-51); MEAN CORPUSCULAR HEMOGLOBIN 31.2 PG (27.0-31.0); MEAN CORPUSCULAR HGB CONC 32.4 g/dL (33.0-36.5); MEAN CORPUSCULAR VOLUME 96.3 FL (78-98); MEAN PLATELET VOLUME 12.2 FL (7.4-10.4); MONOCYTES % (AUTO) 5.2 % (2-12); NEUTROPHILS # (AUTO) 7.1 X10'3 (1.8-7.7); NEUTROPHILS % (AUTO) 89.9 % (42-75); RED CELL DISTRIBUTION WIDTH 16.7 % (11.5-14.5); WHITE BLOOD COUNT 7.9 X10'3 (4.5-11.0)
[2024-01-23 07:42] LABS: ALBUMIN 2.7 G/DL (3.4-5.0); ANION GAP 16 (8-16); BLOOD UREA NITROGEN 88 MG/DL (7-18); BUN/CREATININE RATIO 9.9 (10.0-20.0); CALCIUM 8.5 MG/DL (8.5-10.1); CHLORIDE 96 MMOL/L (99-107); CREATININE 8.87 MG/DL (0.60-1.10); GLUCOSE 134 MG/DL (70-104); MAGNESIUM 2.3 MG/DL (1.5-2.4); POTASSIUM 4.6 MMOL/L (3.5-5.1); SODIUM 137 MMOL/L (135-145); TOTAL CARBON DIOXIDE 24.8 MMOL/L (24-32); eCRCL 7 ML/MIN; eGFR 6 ML/MIN
[2024-01-23 07:45] LABS: PHOSPHORUS 9.1 MG/DL (2.3-4.5)
[2024-01-23] MEDS: clopidogrel 75mg tablet PO SCH (08:31)
[2024-01-23] MEDS: ROSUVASTATIN CALCIUM 5 MG TABLET PO SCH (08:31)
[2024-01-23] MEDS: famotidine 20mg tablet PO SCH (08:31)
[2024-01-23 08:54] LABS: PLATELET COUNT 246 X10'3 (140-440)
[2024-01-23 08:57] LABS: ANISOCYTOSIS 1+; GIANT PLATELET FEW; LARGE PLATELETS MODERATE; PLATELET ESTIMATE NORMAL
[2024-01-23] MEDS ORDERED: famotidine 20mg tablet PO SCH (11:57)
[2024-01-23] MEDS: aspirin 81mg, enteric-coated 1 TAB TABLET.DR PO SCH (20:00)
[2024-01-24 06:00] VITALS: BP 96/65; PULSE 75; RESP 18; TEMP 96.9; O2SAT 99
[2024-01-24] MEDS: magnesium sulf-water 2g/50mL 50 ML IV ONE (06:20)
[2024-01-24 06:54] LABS: LYMPHOCYTES # (AUTO) 0.4 X10'3 (1.1-4.8); MONOCYTES # (AUTO) 0.5 X10'3 (0-0.9)
[2024-01-24 06:56] LABS: BASOPHILS % (AUTO) 0.4 % (0-1); EOSINOPHILS % (AUTO) 0.3 % (0-6); HEMATOCRIT 34.3 % (42.0-52.0); HEMOGLOBIN 11.3 g/dl (14.0-17.9); LYMPHOCYTES % (AUTO) 5.1 % (21-51); MEAN CORPUSCULAR HEMOGLOBIN 31.5 PG (27.0-31.0); MEAN CORPUSCULAR HGB CONC 32.9 g/dL (33.0-36.5); MEAN CORPUSCULAR VOLUME 95.9 FL (78-98); MEAN PLATELET VOLUME 12.5 FL (7.4-10.4); MONOCYTES % (AUTO) 6.3 % (2-12); NEUTROPHILS % (AUTO) 87.9 % (42-75); PLATELET COUNT 265 X10'3 (140-440); RED BLOOD COUNT 3.57 X10'6 (4.70-6.10); RED CELL DISTRIBUTION WIDTH 16.7 % (11.5-14.5)
[2024-01-24 07:10] LABS: ALBUMIN 2.7 G/DL (3.4-5.0); ANION GAP 20 (8-16); BLOOD UREA NITROGEN 96 MG/DL (7-18); CALCIUM 8.9 MG/DL (8.5-10.1); CHLORIDE 96 MMOL/L (99-107); CREATININE 9.59 MG/DL (0.60-1.10); GLUCOSE 89 MG/DL (70-104); MAGNESIUM 2.4 MG/DL (1.5-2.4); PHOSPHORUS 9.5 MG/DL (2.3-4.5); POTASSIUM 4.9 MMOL/L (3.5-5.1); SODIUM 139 MMOL/L (135-145); TOTAL CARBON DIOXIDE 22.7 MMOL/L (24-32); eCRCL 6 ML/MIN; eGFR 5 ML/MIN
[2024-01-24 08:00] VITALS: RESP 18; O2SAT 95
[2024-01-24] MEDS ORDERED: heparin 1,000 units/ml 10ml inj HE ONE (08:00)
[2024-01-24] MEDS ORDERED: heparin 1,000unit/ml 10ml vial 10 ML IV ONE (08:00)
[2024-01-24] MEDS ORDERED: heparin 1,000 units/ml 10ml inj IV ONE (08:00)
[2024-01-24] MEDS: atorvastatin 20mg tablet PO SCH (08:43)
[2024-01-24] MEDS ORDERED: ASPI-1071 PO (09:39)
[2024-01-24] MEDS ORDERED: CLOP-32 PO (09:39)
[2024-01-24] MEDS ORDERED: METO-395 PO (09:39)
[2024-01-24] MEDS ORDERED: ROSU40TA PO (11:41)
== END 2024-01-24 15:51 | DRG 280 ==
LOC: ER 10:08 → ED HOLD 12:23 → CICU 2S 13:30 → PCU 3S 01-22 01:11
PROVIDERS: ADMIT Internal Medicine Critical Care Medicine; ATTEND Internal Medicine Critical Care Medicine
PROC: 5A1D70Z Performance of Urinary Filtration, Intermittent, Less than 6 Hours Per Day (ICD-10-PCS; principal; 2024-01-20)
PROC: 5A1D70Z Performance of Urinary Filtration, Intermittent, Less than 6 Hours Per Day (ICD-10-PCS; 2024-01-22)
PROC: 4A023N7 Measurement of Cardiac Sampling and Pressure, Left Heart, Percutaneous Approach (ICD-10-PCS; 2024-01-22)
PROC: B2111ZZ Fluoroscopy of Multiple Coronary Arteries using Low Osmolar Contrast (ICD-10-PCS; 2024-01-22)
PROC: B2131ZZ Fluoroscopy of Multiple Coronary Artery Bypass Grafts using Low Osmolar Contrast (ICD-10-PCS; 2024-01-22)
PROC: B41F1ZZ Fluoroscopy of Right Lower Extremity Arteries using Low Osmolar Contrast (ICD-10-PCS; 2024-01-22)
DX: I21.4 Non-ST elevation (NSTEMI) myocardial infarction (principal); I50.23 Acute on chronic systolic (congestive) heart failure; N18.6 End stage renal disease; I13.2 Hypertensive heart and chronic kidney disease with heart failure and with stage 5 chronic kidney disease, or end stage renal disease; I47.20 Ventricular tachycardia, unspecified; G89.29 Other chronic pain; I25.5 Ischemic cardiomyopathy; I95.9 Hypotension, unspecified; M54.9 Dorsalgia, unspecified; E87.5 Hyperkalemia; I48.0 Paroxysmal atrial fibrillation; J44.89 Other specified chronic obstructive pulmonary disease; G47.30 Sleep apnea, unspecified; I25.10 Atherosclerotic heart disease of native coronary artery without angina pectoris; E78.5 Hyperlipidemia, unspecified; Z95.1 Presence of aortocoronary bypass graft; Z99.2 Dependence on renal dialysis; Z90.5 Acquired absence of kidney; Z79.01 Long term (current) use of anticoagulants; Z79.899 Other long term (current) drug therapy; Z88.5 Allergy status to narcotic agent; I25.2 Old myocardial infarction; Z82.49 Family history of ischemic heart disease and other diseases of the circulatory system
CPT/HCPCS: 36415; 71045; 80048; 80053; 83605; 83735; 83880; 84100; 84145; 84484; 85008; 85025; 85610; 85730; 86706; 87040; 87081; 87340; 93005; 93306; 93459; 94760; 97110; 97161; 97530; 99152; 99153; 99285; A6213; A6250; A6258; A6449; A6590; C1758; C1760; E1594; G0257; G0378; J0282; J1644; J2003; J2250; J2270; J3010; J7030; J7040; P9047; Q0163; Q9967